=== PATIENT | male | born 1945 | race Caucasian/White ===

== ENCOUNTER 2018-09-20 11:13 | Inpatient (IN) | payer OTHER, MEDICARE ==
[2018-09-20 12:15] LABS: VENOUS PC02 33.9 mmHg (38-52); VENOUS PH 7.5 (7.32-7.42); VENOUS PO2 51.6 mmHg (28-48)
[2018-09-20] MEDS ORDERED: ACETAMINOPHEN INJECTION 100 ML IVPB ONE (12:25)
[2018-09-20] MEDS ORDERED: PIPERACILLIN/TAZOB 4.5 GM 4.5 GM/100 ML BAG IVPB ONE (12:26)
[2018-09-20] MEDS ORDERED: VANCOMYCIN 1 GRAM (PRE-DOCKED) 1,000 MG/250 ML BAG IVPB ONE (12:26)
[2018-09-20 12:36] LABS: BASO % 0.4 % (0-2.0); EOS % 0.2 % (0-4.5); HEMATOCRIT 35.8 % (35.4-49); HEMOGLOBIN 12.2 GM/dL (11.7-16.9); LYMPH % 10.4 % (8-40); MCH 29.4 pg (25.7-33.7); MCHC 34.1 g/dl (32.0-35.9); MEAN CELL VOLUME 86.2 fl (80-96); MEAN PLT VOLUME 8.7 fl (7.5-11.1); MONO % 4.9 % (3.8-10.2); NEUT % 84.1 % (42.8-82.8); PLATELET COUNT 111 K/MM3 (134-434); RBC 4.16 M/mm3 (4.00-5.60); RDW 15.8 % (11.9-15.9)
[2018-09-20] MEDS ORDERED: ACETAMINOPHEN 1000 MG/100 ML VIAL (NON FORMULARY) IVPB ONE (12:39)
[2018-09-20] MEDS ORDERED: VANCOMYCIN 1,000 MG in DEXTROSE 5%-WATER - 250 ML IVPB ONE (12:39)
--- NOTE | 2018-09-20 12:39 | PDOC ---
History of Present Illness - General Chief Complaint: Weakness Stated Complaint: weakness Time Seen by Provider: 09/20/18 11:41 - History of Present Illness Initial Comments: 09/20/18 12:21 The patient is a 72 year old male with a significant past medical history of COPD, diabetes, CHF, and emphysema who presents to the emergency department with weakness and diaphoresis since earlier today. As per the patient's son, the patient was found to be sliding down to the floor of his hotel room from his bed this morning at about 9am secondary to his weakness. No head stirike, injuries, LOC from fall. The patient's son states that his daughter witnessed the patient's condition and notified him. The patient son notes that the patient had been up all night and was found to be urine and bowel incontinent when witnessed this morning. Patient experienced 1 episode of brown colored emesis and was noted to have diaphoresis and bilateral leg swelling by his son prompting him to bring him to [facility]. Denies fevers, chills, cp, sob, weakness, dizziness, numbness. Per the patient's son and MJ Zelaya the patient was [facility] with [facility] and CHF for 3 months (May 21- Aug 22) and he was then placed on antibiotics for 21 days by which he recently finished. The patient was seen recently by his doctor and had an increase in his water pill dosage. As per the patient's son, the patient has not taken any of his medications today. Past History - Past Medical History Allergies/Adverse Reactions: Allergies Allergy/AdvReac Type Severity Reaction Status Date / Time No Known Allergies Allergy Verified 09/20/18 11:29 COPD: Yes CHF: Yes Diabetes: Yes Hypercholesterolemia: Yes Other medical history: hard of hearing. - Suicide/Smoking/Psychosocial Hx Smoking History: Former smoker Have you smoked in the past 12 months: No Information on smoking cessation initiated: No Hx Alcohol Use: No Drug/Substance Use Hx: No Review of Systems - Review of Systems Comments:: 09/20/18 14:40 GENERAL/CONSTITUTIONAL: No fever or chills. +generalized weakness. HEAD, EYES, EARS, NOSE AND THROAT: No change in vision. No ear pain or discharge. No sore throat. GASTROINTESTINAL: No nausea, vomiting, diarrhea or constipation. GENITOURINARY: No dysuria, frequency, or change in urination. CARDIOVASCULAR: No chest pain or shortness of breath. RESPIRATORY: No cough, wheezing, or hemoptysis. MUSCULOSKELETAL: No joint or muscle swelling or pain. No neck or back pain. SKIN: No rash NEUROLOGIC: No headache, vertigo, loss of consciousness, or change in strength/ sensation. ENDOCRINE: No increased thirst. No abnormal weight change. HEMATOLOGIC/LYMPHATIC: No anemia, easy bleeding, or history of blood clots. ALLERGIC/IMMUNOLOGIC: No hives or skin allergy. *Physical Exam - Vital Signs Last Vital Signs Temp Pulse Resp BP Pulse Ox 103.5 F H 81 22 H 120/61 98 09/20/18 11:33 09/20/18 11:17 09/20/18 11:17 09/20/18 11:17 09/20/18 11:17 - Physical Exam Comments: 09/20/18 14:41 GENERAL: Awake, alert, in mild respiratory distress. +diaphoretic HEAD: No signs of trauma EYES: PERRLA, EOMI, sclera anicteric, conjunctiva clear ENT: Nares patent, oropharynx clear without exudates. Moist mucosa LUNGS: b/l crackles, +mild increased WOB, RR 20 HEART:tachycardic but regular to 114, normal S1 and S2, no murmurs, rubs or gallops ABDOMEN: Soft, nontender, normoactive bowel sounds. No guarding, no rebound. No masses EXTREMITIES: b/l symmetric LE pitting edema NEUROLOGICAL: Normal speech, cranial nerves intact, equal strength and sensation b/l SKIN: Warm, Dry, normal turgor, no rashes or lesions noted. Moderate Sedation - Procedure Monitoring Vital Signs: Procedure Monitoring Vital Signs Temperature 103.5 F H 09/20/18 11:33 Pulse Rate 81 09/20/18 11:17 Respiratory Rate 22 H 09/20/18 11:17 Blood Pressure 120/61 09/20/18 11:17 O2 Sat by Pulse Oximetry (%) 98 09/20/18 11:17 Heart Score/ECG Review #1 09/20/18 14:45 Twelve-lead EKG was performed and reviewed by me. Sinus tachycardia, rate 118. Normal axis. wavy baseline but no ST elevations. ED Treatment Course - LABORATORY CBC & Chemistry Diagram: 09/20/18 11:45 09/20/18 11:45 - ADDITIONAL ORDERS Additional order review: Laboratory Results 09/20/18 11:45 VBG pH 7.50 H POC VBG pCO2 33.9 L POC VBG pO2 51.6 H Mixed VBG HCO3 26.1 H - RADIOLOGY Radiology Studies Ordered: Category Date Time Status CHEST X-RAY PORTABLE* [RAD] Stat Radiology 09/20/18 11:50 Ordered Medical Decision Making - Medical Decision Making 09/20/18 14:40 73yo M hx CHF, COPD, recent PNA admission presents to the ED with generalized weakness found to be febrile, tachycardic and tachypneic. Exam with crackles. Story c/f HCAP, pt covered with Vanc/Zosyn. Flu swab neg Spoke with ED attending at the [place] for collateral, pt was admitted for PCP pneumonia presumably 2/2 immunesupression from humira/methrexate tx for arthritis. These medications have since been stopped. Pt was readmitted for resp failure 2/2 rhinovirus. Pt was not intubated but was in ICU. Per his son and POA, pt is DNR/DNI. Pt expressed his wishes not to be resusitated to his son and family. At this time, pt is stable from a resp stand point. CXR with diffuse infiltrates and effusion on right. Family amenable to bipap for resp support if needed. RR at this time is 18, O2 sat is 98% on 2L. Case discussed with Dr. Ramirez, pt has been admitted to Dr. Cotto for further mgmt. Case discussed in detail with admitting physician including history, physical exam and ancillary studies. Admitting physician has assumed care for the patient, will follow all pending diagnostics and will complete the evaluation and treatment. *DC/Admit/Observation/Transfer Diagnosis at time of Disposition: PNA (pneumonia), Weakness, Fever - Discharge Dispostion Condition at time of disposition: Stable Decision to Admit order: Yes - Referrals Referrals: Justin Thao MD [Primary Care Provider] - - Patient Instructions - Post Discharge Activity - Attestations Physician Attestion: 09/20/18 14:53 I, Dr. Tari Quiñones MD, attest that this document has been prepared under my direction and personally reviewed by me in its entirety. I further attest, that it accurately reflects all work, treatment, procedures and medical decision -making performed by me.
[2018-09-20] MEDS ORDERED: PIPERACILLIN/TAZOB 4.5 GM 4.5 GM in DEXTROSE 5%-WATER - 100 ML IVPB ONE (12:42)
[2018-09-20 12:57] LABS: ALBUMIN 3.1 g/dl (3.4-5.0); ALK PHOS 83 U/L (45-117); ANION GAP 13 MMOL/L (8-16); BILIRUBIN,TOTAL 0.7 mg/dL (0.2-1); BLOOD UREA NITROGEN 30 mg/dL (7-18); CALCIUM 7.8 mg/dL (8.5-10.1); CHLORIDE 97 mmol/L (98-107); CO2 25 mmol/L (21-32); CREATININE 1.5 mg/dL (0.55-1.3); GLUCOSE,RANDOM 239 mg/dL (74-106); SGOT/AST 32 U/L (15-37); SGPT/ALT 23 U/L (13-61); SODIUM 135 mmol/L (136-145)
[2018-09-20 14:08] LABS: LDH 449 U/L (87-246); MAGNESIUM 0.9 mg/dL (1.8-2.4)
[2018-09-20] MEDS ORDERED: SULFAMETHOXAZOLE 80 MG/TRIMETHOPRIM 16 MG/ML VIAL IVPB ONE (14:11)
[2018-09-20] MEDS ORDERED: KCL 10 MEQ IVPB 10 MEQ/100 ML INFUS.BAG IVPB ONE (14:18)
[2018-09-20] MEDS ORDERED: MAGNESIUM 1GM/D5W - 2 GM/200 ML IVPB IVPB ONE (14:18)
[2018-09-20] MEDS: KCL 10 MEQ IVPB 10 MEQ/100 ML INFUS.BAG IVPB SCH ×3 (14:38→21:20)
[2018-09-20] MEDS ORDERED: SULFAMETHOXAZOLE/TRIMETHOPRIM 400 MG in DEXTROSE 5%-WATER - 500 ML IVPB ONE (15:00)
--- NOTE | 2018-09-20 15:08 | HP ---
Admitting History and Physical - Primary Care Physician PCP: Justin Thao DO - Admission Chief Complaint: Altered mental status History of Present Illness: 73 yo M h/o COPD, IDDM, CHF, and emphysema brought in by family member to the ED due to altered mental status. Patient vomited once last night and found to be sliding off his bed to the floor this morning. Per his son, patient was a little "out" and weak which is off his normal behavioral and baseline mental status. Patient was hospitalized at [facility] in May, 2018 for upper respiratory infection/PNA from rhinovirus then readmitted in July for penumocystis pneumonia, based on the fact that patient was on methotrexate and humira which made him immunosuppressed, treated with bactrim for 21 days, without broncoscopy because family declined the procedure. Denies cough, hemoptysis, headache, dizziness, wheezing, abd pain, diarrhea, urinary symptom. Patient was frebile to 103.5F, tachycardic and tachypenic in the ED. He receved bactrim x 1, vanc and zosyn x 1. Lytes were repleted. History Source: Patient, Family Member Limitations to Obtaining History: No Limitations - Past Medical History Cardiovascular: Yes: CHF Pulmonary: Yes: COPD, Pneumonia, Other (emphysema) Endocrine: Yes: Diabetes Mellitus - Smoking History Smoking history: Former smoker Have you smoked in the past 12 months: No - Alcohol/Substance Use Hx Alcohol Use: No - Social History Usual Living Arrangement: Yes: With Child Home Medications - Allergies Allergies/Adverse Reactions: Allergies Allergy/AdvReac Type Severity Reaction Status Date / Time No Known Allergies Allergy Verified 09/20/18 11:29 - Home Medications Home Medications: Ambulatory Orders Folic Acid 1 mg PO DAILY 09/20/18 Furosemide [Lasix] 80 mg PO DAILY 09/20/18 Insulin Glargine,Hum.rec.anlog [Basaglar Kwikpen U-100] 15 unit SQ DAILY Lovastatin 20 mg PO HS 09/20/18 Terazosin HCl 10 mg PO HS 09/20/18 metFORMIN HCL [Metformin HCl] 850 mg PO DAILY 09/20/18 Review of Systems - Review of Systems Constitutional: reports: Chills, Diaphoresis, Fever, Malaise Cardiovascular: reports: Shortness of Breath. denies: Chest Pain Respiratory: denies: Cough, Hemoptysis Gastrointestinal: reports: Vomiting. denies: Abdominal Pain, Bloating, Diarrhea , Vomiting Blood Genitourinary: reports: No Symptoms Neurological: reports: No Symptoms Physical Examination Vital Signs: Vital Signs Temperature 101 F H 09/20/18 14:57 Pulse Rate 110 H 09/20/18 12:40 Respiratory Rate 25 H 09/20/18 11:50 Blood Pressure 112/86 09/20/18 11:50 O2 Sat by Pulse Oximetry (%) 96 09/20/18 12:40 Constitutional: Yes: Calm, Mild Distress, Obese Cardiovascular: Yes: Tachycardia, S1, S2. No: Murmur Respiratory: Yes: On Nasal O2, Other (b/l basilar crackles) Gastrointestinal: Yes: Normal Bowel Sounds, Soft, Abdomen, Obese. No: Distention, Tenderness Edema: Yes Edema: LLE: 1+, RLE: 1+ Neurological: Yes: Alert, Oriented Labs: CBC, BMP 09/20/18 11:45 09/20/18 11:45 Imaging - Results X-ray: Report Reviewed, Image Reviewed Assessment/Plan 73 yo M h/o COPD, IDDM, CHF, and emphysema admitted to the floor for severe sepsis. Severe sepsis - 2/2 PNA, likely aspiration, cannot r/o HCAP, PCP or viral origin - pending urine and blood cultures - cont. vanc and zosyn - add atovaquone 750mg bid - add azitromax 500mg IV, give it after EKG, check Qtc first - trend lactate and wbc Elevated Cr - unknown baseline - renal U/S - urine lytes COPD - cont. duoneb CHF - not in exacerbation - cont. daily lasix po 80mg - obtain ECHO IDDM - BGM and sliding scale FEN - caution with fluids due to chf - monitor K+ and Mg2+ , repeat BMP + Mg2+ at 8pm - diabetic diet DVT ppx w/ heparin sq Dispo: medical record release form signed and fax to LETTY Addison to obtain prior admission record. Pharmacy called and to fax med list to 5th floor. Jimmy Ramirez PGY3 Visit type - Emergency Visit Emergency Visit: Yes ED Registration Date: 09/20/18 Care time: The patient presented to the Emergency Department on the above date and was hospitalized for further evaluation of their emergent condition. - New Patient This patient is new to me today: Yes Date on this admission: 09/20/18 - Critical Care Critical Care patient: No
[2018-09-20 15:11] LABS: INR 1.23 (0.83-1.09); PROTHROMBIN TIME (PATIENT) 14.6 SEC (9.7-13.0)
[2018-09-20 15:13] LABS: ACTIVATED PTT 30.7 SECONDS (25.2-36.5)
--- NOTE | 2018-09-20 16:03 | PN ---
Teaching Attending Note Name of Resident: Jimmy Ramirez ATTENDING PHYSICIAN STATEMENT I saw and evaluated the patient. I reviewed the resident's note and discussed the case with the resident. I agree with the resident's findings and plan as documented. SUBJECTIVE: Patient presented with shortness of breath, was recently discharged from the [facility] . OBJECTIVE: Vital Signs Temperature 101 F H 09/20/18 14:57 Pulse Rate 110 H 09/20/18 12:40 Respiratory Rate 25 H 09/20/18 11:50 Blood Pressure 112/86 09/20/18 11:50 O2 Sat by Pulse Oximetry (%) 96 09/20/18 12:40 Initial Vital Signs Temp Pulse Resp BP Pulse Ox 98.3 F 81 22 H 120/61 98 09/20/18 11:17 09/20/18 11:17 09/20/18 11:17 09/20/18 11:17 09/20/18 11:17 GENERAL: Awake, alert, in mild respiratory distress. HEAD: No signs of trauma EYES: PERRLA, EOMI, sclera anicteric, conjunctiva clear ENT: oropharynx clear without exudates. Moist mucosa LUNGS: b/l crackles, decreased BS BL ,RR 20 HEART:tachycardic but regular to 114, normal S1 and S2, no murmurs, rubs or gallops ABDOMEN: Soft, nontender, normoactive bowel sounds. No guarding, no rebound. No masses EXTREMITIES: b/l symmetric LE pitting edema NEUROLOGICAL: Normal speech, cranial nerves intact, equal strength and sensation b/l SKIN: Warm, Dry, normal turgor, no rashes or lesions noted. CBCD WBC 11.0 K/mm3 (4.0-10.0) H 09/20/18 11:45 RBC 4.16 M/mm3 (4.00-5.60) 09/20/18 11:45 Hgb 12.2 GM/dL (11.7-16.9) 09/20/18 11:45 Hct 35.8 % (35.4-49) 09/20/18 11:45 MCV 86.2 fl (80-96) 09/20/18 11:45 MCHC 34.1 g/dl (32.0-35.9) 09/20/18 11:45 RDW 15.8 % (11.9-15.9) 09/20/18 11:45 Plt Count 111 K/MM3 (134-434) L 09/20/18 11:45 MPV 8.7 fl (7.5-11.1) 09/20/18 11:45 CMP Sodium 135 mmol/L (136-145) L 09/20/18 11:45 Potassium 3.0 mmol/L (3.5-5.1) L 09/20/18 11:45 Chloride 97 mmol/L (98-107) L 09/20/18 11:45 Carbon Dioxide 25 mmol/L (21-32) 09/20/18 11:45 Anion Gap 13 MMOL/L (8-16) 09/20/18 11:45 BUN 30 mg/dL (7-18) H 09/20/18 11:45 Creatinine 1.5 mg/dL (0.55-1.3) H 09/20/18 11:45 Creat Clearance w eGFR 46.13 (>60) 09/20/18 11:45 Random Glucose 239 mg/dL (74-106) H 09/20/18 11:45 Calcium 7.8 mg/dL (8.5-10.1) L 09/20/18 11:45 Total Bilirubin 0.7 mg/dL (0.2-1) 09/20/18 11:45 AST 32 U/L (15-37) 09/20/18 11:45 ALT 23 U/L (13-61) 09/20/18 11:45 Alkaline Phosphatase 83 U/L (45-117) 09/20/18 11:45 Total Protein 6.0 g/dl (6.4-8.2) L 09/20/18 11:45 Albumin 3.1 g/dl (3.4-5.0) L 09/20/18 11:45 CARDIAC ENZYMES Troponin I < 0.02 ng/ml (0.00-0.05) 09/20/18 11:45 Current Medications Generic Name Dose Route Start Last Admin Trade Name Freq PRN Reason Stop Dose Admin Albuterol/Ipratropium 1 amp 09/20/18 20:00 Duoneb - NEB RTID JENNIFER Atorvastatin Calcium 10 mg 09/20/18 22:00 Lipitor - PO HS JENNIFER Atovaquone 750 mg 09/20/18 17:30 Mepron - PO BIDWM JENNIFER Folic Acid 1 mg 09/21/18 10:00 Folic Acid - PO DAILY JENNIFER Furosemide 80 mg 09/21/18 10:00 Lasix - PO DAILY JENNIFER Heparin Sodium (Porcine) 5,000 unit 09/20/18 18:00 Heparin - SQ Q8H-IV JENNIFER Piperacillin Sod/Tazobactam 100 mls @ 200 mls/hr 09/20/18 18:00 Sod 4.5 gm/ Dextrose IVPB Q8H-IV JENNIFER Protocol Insulin Aspart 1 vial 09/20/18 16:30 Novolog Vial Sliding Scale - SQ ACHS JENNIFER Protocol Terazosin HCl 10 mg 09/20/18 22:00 Hytrin - PO HS JENNIFRE ASSESSMENT AND PLAN: Patient is a 73 yo M h/o COPD, IDDM, CHF, and emphysema admitted to the floor for severe sepsis and shortness of breath. #Severe sepsis due to Pneumonia (HCAP) since patient was discharged 21 days ago from [facility] , will treat the patient with Zithromax x 1 dose, for possible legionella, will check legeniella antigen and strpt antigen, continue vancomycin and zosyn , add atovaquone 750mg bid ( for possible PCP) doubt PCP given acuity of the symptoms. #Possible recurrent UTI, patient was treated with Cipro x 14 days just finished the course. #Elevated creatinine- check renal sonogram, urine lytes #Hx of COPd continue with duoneb # Hx of COPd will give hime his home dose lasix, echo for am DNR/DNI DVT ppx w/ heparin sq Dispo: medical record release form signed and fax to LETTY Addison to obtain prior admission record. Pharmacy called and to fax med list to 5th floor.
[2018-09-20] MEDS ORDERED: KCL 10 MEQ IVPB 20 MEQ/200 ML INFUS.BAG IVPB ONE (16:07)
--- NOTE | 2018-09-20 16:11 | PN ---
Progress Note (short form) - Note Progress Note: ID consult dictated seen in ED imp/reccd 73 yo man brought to ED this am by family. THey had been staying at the hotel for the weekend. He was fine yesterday. had one episode of vomiting last night that he attributes to food this am his granddaughter found him weak and sliding to the floor off the bed patient is awake and alert denies sob, or chest or abdominal pain no dysuria per son at bedside dad had 2 admissions - one in the fall and agin one after Thankgiving at [facility] for pneumonia he was diagnosed with PCP- but never had a bronch per family- treated 21 days with antibiotics- RA meds d/rylie recently saw a new doctor 3 weeks ago was diagnosed with a UTI and just finished a 14 day course of cipro bid now with fever/abnl cxray r/p aspiration pneumonia HCAP doubt PCP given acuity of process ?recurrent UTI obtain UA and urine culture blood cultures have been sent he was given vanco/zosyn/bactrim in ed would continue vanco/zosyn check legionella urinary antigen one dose zithromax pending legionella fungitell (ldh is high) po mepron 750 bid get records from [facility] ct elevated creatinine- check renal sonogram DNR/DNI d/w admitting resident dr chavez d/w hospitalist
[2018-09-20] MEDS ORDERED: FUROSEMIDE 40 MG TABLET (FP) PO ONE (16:15)
[2018-09-20] MEDS ORDERED: FUROSEMIDE 40 MG TABLET (FP) ONE (16:25)
[2018-09-20] MEDS ORDERED: AZITHROMYCIN IVPB 500 MG/250 ML BAG IVPB ONE (16:39)
[2018-09-20 17:25] LABS: URINE APPEARANCE SLCLOUDY; URINE BILIRUBIN NEGATIVE (<2.0 mg/dL); URINE COLOR YELLOW; URINE GLUCOSE (UA) 2+ (NEGATIVE); URINE KETONE NEGATIVE (NEGATIVE); URINE LEUK ESTERASE NEGATIVE (NEGATIVE); URINE NITRITE NEGATIVE (NEGATIVE); URINE PROTEIN NEGATIVE (NEGATIVE); URINE UROBILINOGEN NEGATIVE mg/dL (0.2-1.0)
--- NOTE | 2018-09-20 17:25 | CONS ---
DATE OF CONSULTATION: 09/20/2018 This is the first [place] admission for this 73-year-old man. Much of the history is from the patient's son, from the emergency room doctor's assessment, who also called his prior hospital. He is an 83-year-old man who has had 2 recent prolonged admissions to [facility] in the fall of 2017. He originally went home around [facility], after an episode of pneumonia. He was re-admitted after that and came home again in August, after a 2nd episode of pneumonia. Per the emergency room doctor, who spoke to the ER attending at [facility]. He had a diagnosis of Pneumocystis pneumonia there secondary to immunosuppression from Humira and methotrexate treatment for arthritis, and his medications were stopped. He has not been on any rheumatoid arthritis medications since then. He apparently had a 2nd admission for Rhinovirus. The patient, after the 2nd discharge home in August, has been living with his son and family. He recently saw a new provider 3 weeks back, who got labs and called him and told him he had a urinary tract infection. He prescribed Cipro b.i.d. for 10 to 14 days, which the patient has completed. The patient this weekend came with his son and family, just for a holiday weekend, at the nearby hotel to the hospital. He was fine on Friday. Friday night he had an episode of vomiting, which the patient attributes to the food and to not liking the food. The patient was sharing a room with his granddaughter; in the morning, she went to alert her dad that he was very lethargic and he had slipped from the bed and was resting on the floor. They brought him to the emergency room, where he was noted to be febrile, he had a fever of 103.5, he had an episode of incontinence of urine and bowel in the ER. He is currently awake and alert, on nasal cannula. His past medical history is notable for COPD, diabetes, heart failure, and emphysema. He has a history of arthritis, for which in the past he was immunosuppressive agents. He has a history of hypercholesterolemia, diabetes, heart failure, COPD. His medication list is currently not available. He has no known drug allergies. In the emergency room, he was given vancomycin, Zosyn, and Bactrim. SOCIAL HISTORY: He resides with his son. He is a former smoker, has not smoked in years. REVIEW OF SYSTEMS: He denies chest pain, abdominal pain. His vomiting has stopped. PHYSICAL EXAMINATION: Vital Signs: His current temperature is 101. T-max is 103.5. Pulse is 120. Blood pressure 112/86. He is saturating 96% on 2 L. HEENT: He is normocephalic. His eyes are anicteric. He has dry oral mucosa. Neck: Supple. No meningeal signs. Lungs: His lungs have diminished breath sounds at the bases. Heart: Regular rate and rhythm, tachycardic. Abdomen: Soft. He has no distention. He has good bowel sounds throughout. Extremities: Without edema. Skin: He has no rash. White count is 11,000, hemoglobin is 12.2, platelets 111, INR is 1.2, BUN 30, creatinine 1.5, lactic acid was 3.6 and repeat is 2.4. LFTs are normal. RSV antigen is negative, as well as influenza. Peripheral blood cultures have been sent. He had a chest x-ray that shows a widened mediastinum and infiltrative changes at the right base. In summary, this is a 73-year-old man with fever, abnormal chest x-ray, as well as a recent UTI. Rule out aspiration pneumonia. Also possible healthcare-associated pneumonia. Doubt Pneumocystis carinii pneumonia, given the acuity of this process, but his LDH is elevated at over 400. Would suggest we obtain a UA and urine culture. Would continue vancomycin and Zosyn. Would check a Legionella urinary antigen as well as a pneumococcal urinary antigen. Would give him Zithromax pending the Legionella results. Would obtain a Fungitell, as his LDH is high. Would give him oral Mepron at this time. He is not hypoxic. Would obtain records from [facility] and obtain a chest CT. This was discussed at length with the admitting resident, , as well as the attending hospitalist. His creatinine is 1.5, baseline is not known. Could obtain a renal ultrasound. Check renal ultrasound and dose medications accordingly. Further recommendations to follow. TOM CAPPS M.D. FADI/[id number]
[2018-09-20 18:23] LABS: RATIO URIN PROTEIN/URIN CREAT 0.52 MG/DL
[2018-09-20] MEDS ORDERED: PIPERACILLIN/TAZOBACTAM 4.5 GM VIAL IVPB ONE (19:55)
[2018-09-20] MEDS ORDERED: DEXTROSE 5%-WATER 100 ML IVPB ONE (19:55)
[2018-09-20] MEDS: ATOVAQUONE 750 MG/5 ML (UNIT-DOSE PACKAGING) PO SCH (20:24)
[2018-09-20] MEDS: HEPARIN NA (PORCINE) 5,000 UNITS/ML 1ML VIAL SQ SCH (20:24)
[2018-09-20] MEDS: PIPERACILLIN/TAZOB 4.5 GM 4.5 GM in DEXTROSE 5%-WATER 100 ML IVPB SCH (20:24)
[2018-09-20] MEDS: ALBUTEROL SO4 2.5/IPRATROPIUM 0.5 INH SOL 3 ML VIAL.NEB. NEB SCH (20:50)
[2018-09-20 21:09] LABS: ANION GAP 10 MMOL/L (8-16); BLOOD UREA NITROGEN 27 mg/dL (7-18); CALCIUM 7.2 mg/dL (8.5-10.1); CHLORIDE 100 mmol/L (98-107); CO2 29 mmol/L (21-32); CREATININE 1.4 mg/dL (0.55-1.3); GLUCOSE,RANDOM 221 mg/dL (74-106); MAGNESIUM 1.4 mg/dL (1.8-2.4); SODIUM 139 mmol/L (136-145)
[2018-09-20 21:19] LABS: POTASSIUM 2.5 mmol/L (3.5-5.1)
[2018-09-20] MEDS: ATORVASTATIN CA 10 MG TABLET (FP) PO SCH (21:20)
[2018-09-20] MEDS: TERAZOSIN HCL 5 MG CAPSULE PO SCH (21:26)
[2018-09-20] MEDS: INSULIN SLIDING SCALE (NOVOLOG) 1 VIAL SQ SCH (21:28)
[2018-09-20] MEDS: POTASSIUM CHLORIDE TABS 20 MEQ TABLET.ER (FP) PO SCH (21:41)
[2018-09-21] MEDS ORDERED: DEXTROSE 5%-WATER 100 ML IVPB ONE ×3 (01:05→17:07)
[2018-09-21] MEDS ORDERED: PIPERACILLIN/TAZOBACTAM 4.5 GM VIAL IVPB ONE ×3 (01:05→17:07)
[2018-09-21] MEDS: INSULIN SLIDING SCALE (NOVOLOG) 1 VIAL SQ SCH ×5 (01:20→22:13)
[2018-09-21] MEDS: PIPERACILLIN/TAZOB 4.5 GM 4.5 GM in DEXTROSE 5%-WATER 100 ML IVPB SCH ×3 (01:29→17:33)
[2018-09-21] MEDS: HEPARIN NA (PORCINE) 5,000 UNITS/ML 1ML VIAL SQ SCH ×3 (01:30→17:33)
[2018-09-21 02:06] VITALS: BMI 30.2
[2018-09-21] MEDS: ALBUTEROL SO4 2.5/IPRATROPIUM 0.5 INH SOL 3 ML VIAL.NEB. NEB SCH ×3 (07:15→20:36)
[2018-09-21 08:07] LABS: BASO % 0.4 % (0-2.0); EOS % 0.9 % (0-4.5); HEMATOCRIT 31.5 % (35.4-49); HEMOGLOBIN 10.8 GM/dL (11.7-16.9); LYMPH % 15.1 % (8-40); MCH 29.2 pg (25.7-33.7); MCHC 34.4 g/dl (32.0-35.9); MEAN CELL VOLUME 84.9 fl (80-96); MEAN PLT VOLUME 8.4 fl (7.5-11.1); MONO % 5.5 % (3.8-10.2); NEUT % 78.1 % (42.8-82.8); PLATELET COUNT 110 K/MM3 (134-434); RBC 3.71 M/mm3 (4.00-5.60)
[2018-09-21 08:54] LABS: ALBUMIN 2.8 g/dl (3.4-5.0); ALK PHOS 72 U/L (45-117); ANION GAP 10 MMOL/L (8-16); BILIRUBIN,TOTAL 0.8 mg/dL (0.2-1); BLOOD UREA NITROGEN 22 mg/dL (7-18); CALCIUM 7.3 mg/dL (8.5-10.1); CHLORIDE 100 mmol/L (98-107); CO2 29 mmol/L (21-32); CREATININE 1.4 mg/dL (0.55-1.3); GLUCOSE,RANDOM 123 mg/dL (74-106); SGOT/AST 25 U/L (15-37); SGPT/ALT 23 U/L (13-61); SODIUM 139 mmol/L (136-145); TOT PROT 5.6 g/dl (6.4-8.2)
[2018-09-21 09:07] LABS: POTASSIUM 2.7 mmol/L (3.5-5.1)
[2018-09-21] MEDS ORDERED: PT OWN MED DRAWER 7, Y5N ONE ×2 (09:44→17:07)
[2018-09-21] MEDS: POTASSIUM CHLORIDE TABS 20 MEQ TABLET.ER (FP) PO SCH ×2 (09:49→22:13)
[2018-09-21] MEDS: FUROSEMIDE 40 MG TABLET (FP) PO SCH (09:49)
[2018-09-21] MEDS: ATOVAQUONE 750 MG/5 ML (UNIT-DOSE PACKAGING) PO SCH ×2 (09:49→17:33)
[2018-09-21] MEDS: FOLIC ACID 1 MG TABLET (FP) PO SCH (09:49)
--- NOTE | 2018-09-21 10:31 | PN ---
Progress Note (short form) - Note Progress Note: Patient is comfortable today. feels better. Vital Signs Temperature 98.9 F 09/21/18 06:00 Pulse Rate 81 09/21/18 06:00 Respiratory Rate 20 09/21/18 06:00 Blood Pressure 110/64 09/21/18 06:00 O2 Sat by Pulse Oximetry (%) 97 09/20/18 20:45 GENERAL: Awake, alert, in mild respiratory distress. HEAD: No signs of trauma EYES: PERRLA, EOMI, sclera anicteric, conjunctiva clear ENT: oropharynx clear without exudates. Moist mucosa LUNGS: b/l crackles, decreased BS BL ,RR 20 HEART:rrr of 81 , normal S1 and S2, no murmurs, rubs or gallops ABDOMEN: Soft, nontender, normoactive bowel sounds. No guarding, no rebound. No masses EXTREMITIES: b/l symmetric LE pitting edema NEUROLOGICAL: Normal speech, cranial nerves intact, equal strength and sensation b/l SKIN: Warm, Dry, normal turgor, no rashes or lesions noted. CBCD WBC 8.0 K/mm3 (4.0-10.0) 09/21/18 06:45 RBC 3.71 M/mm3 (4.00-5.60) L 09/21/18 06:45 Hgb 10.8 GM/dL (11.7-16.9) L 09/21/18 06:45 Hct 31.5 % (35.4-49) L 09/21/18 06:45 MCV 84.9 fl (80-96) 09/21/18 06:45 MCHC 34.4 g/dl (32.0-35.9) 09/21/18 06:45 RDW 16.0 % (11.9-15.9) H 09/21/18 06:45 Plt Count 110 K/MM3 (134-434) L 09/21/18 06:45 MPV 8.4 fl (7.5-11.1) 09/21/18 06:45 CMP Sodium 139 mmol/L (136-145) 09/21/18 06:45 Potassium 2.7 mmol/L (3.5-5.1) L* 09/21/18 06:45 Chloride 100 mmol/L (98-107) 09/21/18 06:45 Carbon Dioxide 29 mmol/L (21-32) 09/21/18 06:45 Anion Gap 10 MMOL/L (8-16) 09/21/18 06:45 BUN 22 mg/dL (7-18) H 09/21/18 06:45 Creatinine 1.4 mg/dL (0.55-1.3) H 09/21/18 06:45 Creat Clearance w eGFR 49.96 (>60) 09/21/18 06:45 Random Glucose 123 mg/dL (74-106) H 09/21/18 06:45 Calcium 7.3 mg/dL (8.5-10.1) L 09/21/18 06:45 Total Bilirubin 0.8 mg/dL (0.2-1) 09/21/18 06:45 AST 25 U/L (15-37) 09/21/18 06:45 ALT 23 U/L (13-61) 09/21/18 06:45 Alkaline Phosphatase 72 U/L (45-117) 09/21/18 06:45 Total Protein 5.6 g/dl (6.4-8.2) L 09/21/18 06:45 Albumin 2.8 g/dl (3.4-5.0) L 09/21/18 06:45 CARDIAC ENZYMES Troponin I < 0.02 ng/ml (0.00-0.05) 09/20/18 11:45 Current Medications Generic Name Dose Route Start Last Admin Trade Name Freq PRN Reason Stop Dose Admin Albuterol/Ipratropium 1 amp 09/20/18 20:00 09/21/18 07:15 Duoneb - NEB 1 amp RTID JENNIFER Administration Atorvastatin Calcium 10 mg 09/20/18 22:00 09/20/18 21:20 Lipitor - PO 10 mg HS JENNIFER Administration Atovaquone 750 mg 09/20/18 17:30 09/21/18 09:49 Mepron - PO 750 mg BIDWM JENNIFER Administration Folic Acid 1 mg 09/21/18 10:00 09/21/18 09:49 Folic Acid - PO 1 mg DAILY JENNIFER Administration Furosemide 80 mg 09/21/18 10:00 09/21/18 09:49 Lasix - PO 80 mg DAILY JENNIFER Administration Heparin Sodium (Porcine) 5,000 unit 09/20/18 18:00 09/21/18 09:50 Heparin - SQ 5,000 unit Q8H-IV JENNIFER Administration Piperacillin Sod/Tazobactam 100 mls @ 200 mls/hr 09/20/18 18:00 09/21/18 09: 51 Sod 4.5 gm/ Dextrose IVPB 200 mls/hr Q8H-IV JENNIFER Administration Protocol Potassium Chloride 10 meq in 100 mls @ 100 mls/hr 09/21/18 10:30 Potassium Chloride 10 Meq Premix Ivpb - IVPB 09/21/18 13:29 Q60M JENNIFER Insulin Aspart 1 vial 09/20/18 16:30 09/21/18 06:35 Novolog Vial Sliding Scale - SQ Not Given ACHS JENNIFER Protocol Magnesium Sulfate 2 gm 09/21/18 11:00 Magnesium Sulfate IVPB 09/21/18 11:01 ONCE ONE Potassium Chloride 40 meq 09/20/18 22:00 09/21/18 09:49 K-Dur - PO 09/22/18 10:01 40 meq BID JENNIFER Administration Terazosin HCl 10 mg 09/20/18 22:00 09/20/18 21:26 Hytrin - PO 10 mg HS JENNIFER Administration Home Medications Medication Instructions Recorded Folic Acid 1 mg PO DAILY 09/20/18 Furosemide [Lasix] 80 mg PO DAILY 09/20/18 Insulin Glargine,Hum.rec.anlog 15 unit SQ DAILY 09/20/18 [Basaglar Kwikpen U-100] Lovastatin 20 mg PO HS 09/20/18 Terazosin HCl 10 mg PO HS 09/20/18 metFORMIN HCL [Metformin HCl] 850 mg PO DAILY 09/20/18 Microbiology Microbiology 09/20/18 11:50 Blood - Peripheral Venous Blood Culture - Preliminary NO GROWTH OBTAINED AFTER 24 HOURS, INCUBATION TO CONTINUE FOR 4 DAYS. 09/20/18 11:50 Blood - Peripheral Venous Blood Culture - Preliminary NO GROWTH OBTAINED AFTER 24 HOURS, INCUBATION TO CONTINUE FOR 4 DAYS. 09/20/18 17:08 Urine For Antigen Detection Legionella Antigen - Final 09/20/18 17:08 Urine For Antigen Detection Streptococcus pneumoniae Antigen (M - Final 09/20/18 17:08 Urine For Antigen Detection Legionella Antigen - Final 09/20/18 17:08 Urine For Antigen Detection Streptococcus pneumoniae Antigen (M - Final Patient is a 73 yo M h/o COPD, IDDM, CHF, and emphysema admitted to the floor for severe sepsis. #Severe sepsis due to Pneumonia(HCAP) continue current antibiotics, patient was recently discharged 21 days ago from [facility] , s/p one dose zithromax. for possible legionella, legionella antigrn and strpt antigen negative. continue vancomycin and zosyn , add atovaquone 750mg bid ( for possible PCP) doubt PCP given acuity of the symptoms. #Possible recurrent UTI, patient was treated with Cipro x 14 days just finished the course. #Elevated creatinine- check renal sonogram, urine lytes #Hx of COPd continue with duoneb # Hx of COPd will give hime his home dose lasix, echo for am DNR/DNI DVT ppx w/ heparin sq papers from [facility] is in the chart. Visit type - Emergency Visit Emergency Visit: Yes ED Registration Date: 09/20/18 Care time: The patient presented to the Emergency Department on the above date and was hospitalized for further evaluation of their emergent condition. - New Patient This patient is new to me today: No - Critical Care Critical Care patient: No - Discharge Referral Referred to [facility] Med P.C[facility] No
--- NOTE | 2018-09-21 10:35 | EKG ---
Test Reason : Blood Pressure : / mmHG Vent. Rate : 118 BPM Atrial Rate : 118 BPM P-R Int : 152 ms QRS Dur : 076 ms QT Int : 300 ms P-R-T Axes : 009 027 022 degrees QTc Int : 420 ms SINUS TACHYCARDIA SEPTAL INFARCT , AGE UNDETERMINED ABNORMAL ECG NO PREVIOUS ECGS AVAILABLE Confirmed by HARVEY STOLL MD ([id number]) on 09/21/2018 10:35:02 AM Referred By: Confirmed By:HARVEY STOLL MD
[2018-09-21] MEDS ORDERED: MAGNESIUM SULF 50% (8.12 MEQ/2 ML-1 GM VIAL) IVPB ONE (11:00)
[2018-09-21] MEDS: KCL 10 MEQ IVPB 10 MEQ/100 ML INFUS.BAG IVPB SCH ×3 (11:11→14:37)
--- NOTE | 2018-09-21 14:19 | CON.PULM ---
Consult Consult Specialty:: PULMONARY Referred by:: JUSTA Reason for Consultation:: FEVER/ABN CT CHEST - History of Present Illness Chief Complaint: WEAKNESS History of Present Illness: 73 yo M h/o COPD, IDDM, CHF, RA,and COPD brought in by family member to the ED due to altered mental status. Patient vomited once last night and found to be sliding off his bed to the floor this morning. Patient was hospitalized at 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 treated with bactrim for 21 days , without bronchoscopy because family declined the procedure. Denies cough, hemoptysis, headache, dizziness, wheezing, abd pain, diarrhea, urinary symptom. Patient was frebile to 103.5F, tachycardic and tachypenic in the ED. He receved bactrim x 1, vanc and zosyn x 1.Found to be hypokalemic. 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 Cardio/Vascular: Yes: CHF Pulmonary: Yes: COPD, Pneumonia, Other Gastrointestinal: No: Ascites Hepatobiliary: No: Cirrhosis Renal/: Yes: Renal Inusuff Heme/Onc: Yes: Anemia Infectious Disease: Yes: Other (h/o pcp) Psych: No: Addictions Rheumatology: Yes: Rheumatoid Arthritis Endocrine: Yes: Diabetes Mellitus - Alcohol/Substance Use Hx Alcohol Use: No History of Substance Use: reports: None - Smoking History Smoking history: Former smoker Have you smoked in the past 12 months: No - Social History Place of : [facility] History of Recent Travel: No Home Medications - Allergies Allergies/Adverse Reactions: Allergies Allergy/AdvReac Type Severity Reaction Status Date / Time No Known Allergies Allergy Verified 09/20/18 11:29 - Home Medications Home Medications: Ambulatory Orders Folic Acid 1 mg PO DAILY 09/20/18 Furosemide [Lasix] 80 mg PO DAILY 09/20/18 Insulin Glargine,Hum.rec.anlog [Basaglar Kwikpen U-100] 15 unit SQ DAILY Lovastatin 20 mg PO HS 09/20/18 Terazosin HCl 10 mg PO HS 09/20/18 metFORMIN HCL [Metformin HCl] 850 mg PO DAILY 09/20/18 Family Disease History - Family Disease History Family History: Unremarkable Review of Systems - Review of Systems Constitutional: reports: Fever, Lethargy, Loss of Appetite Eyes: denies: Blurred Vision HENT: denies: Difficult Swallowing Neck: denies: Decreased ROM Cardiovascular: denies: Chest Pain Respiratory: denies: Cough, Exercise Intolerance, Hemoptysis, SOB on Exertion, Wheezing Gastrointestinal: denies: Abdominal Pain Genitourinary: denies: Burning Breasts: reports: No Symptoms Reported Musculoskeletal: reports: Other (h/o RA now in remission) Physical Exam Vital Sings: Vital Signs Temperature 98.4 F 09/21/18 09:00 Pulse Rate 96 H 09/21/18 09:00 Respiratory Rate 20 09/21/18 09:00 Blood Pressure 121/61 09/21/18 09:00 O2 Sat by Pulse Oximetry (%) 97 09/20/18 20:45 Constitutional: Yes: Calm Eyes: Yes: EOM Intact HENT: Yes: Normocephalic Neck: Yes: Trachea Midline Cardiovascular: Yes: Regular Rate and Rhythm Respiratory: Yes: Rhonchi (scattered bilaterally) Gastrointestinal: Yes: Normal Bowel Sounds Edema: No Neurological: Yes: Alert Psychiatric: Yes: Alert Labs: CBC, BMP 09/21/18 06:45 09/21/18 06:45 rest reviewed Imaging - Results Chest X-ray: Report Reviewed, Image Reviewed Cat Scan: Report Reviewed, Image Reviewed Problem List - Problems (1) Rheumatoid arthritis Code(s): M06.9 - RHEUMATOID ARTHRITIS, UNSPECIFIED (2) Fever Code(s): R50.9 - FEVER, UNSPECIFIED (3) PNA (pneumonia) Code(s): J18.9 - PNEUMONIA, UNSPECIFIED ORGANISM (4) Weakness Code(s): R53.1 - WEAKNESS (5) COPD (chronic obstructive pulmonary disease) Code(s): J44.9 - CHRONIC OBSTRUCTIVE PULMONARY DISEASE, UNSPECIFIED (6) ILD (interstitial lung disease) Code(s): J84.9 - INTERSTITIAL PULMONARY DISEASE, UNSPECIFIED Assessment/Plan FEBRILE EPISODE AT HOME WITH WEAKNESS EXTENSIVE HX WITH RA AND PREVIOUS IMMUNOSUPPRESSANTS ALONG WITH RECENT PROLONGED HOSPITALIZATION AND COMPLETION OF ANTIBIOTICS RECENT PAST INFECTION WITH PCP FIRST HOSPITALIZATION HERE(NO OLD RECORDS OR PREVIOUS RADIOGRAPHS) CT CHEST APPEARS TO HAVE BIBASILAR HONEYCOMBING/RUL IRREGULAR DENSITY AND BILATERAL EXTENSIVE CHRONIC APPEARING INFILTRATIVE CHANGES WOULD CHECK CULTURES/SUPPLEMENTAL O2/BRONCHODILATORS/REPLETE K+ ANTIBIOTICS PER ID/PRIMARY TEAM OBTAIN OLD RECORDS NOT TO UNNECESSARILY REPEAT TESTING SUGGEST RHEUM EVAL WILL FOLLOW Matt PLASENCIA MD
--- NOTE | 2018-09-21 16:10 | PN ---
Progress Note (short form) - Note Progress Note: alert no complaints no vomitig no diarrhea Vital Signs Period Temp Pulse Resp BP Sys/Wagoner Pulse Ox Last 24 Hr 97.6 F-99.9 F 70-96 13-20 107-121/61-78 97-100 cor-rrr llungs decreased bs at bases abd soft,nt ext trace edema CBC, BMP 09/21/18 06:45 09/21/18 06:45 Microbiology 09/20/18 11:50 Blood - Peripheral Venous Blood Culture - Preliminary NO GROWTH OBTAINED AFTER 24 HOURS, INCUBATION TO CONTINUE FOR 4 DAYS. 09/20/18 11:50 Blood - Peripheral Venous Blood Culture - Preliminary NO GROWTH OBTAINED AFTER 24 HOURS, INCUBATION TO CONTINUE FOR 4 DAYS. 09/20/18 17:08 Urine For Antigen Detection Legionella Antigen - Final negative 09/20/18 17:08 Urine For Antigen Detection Streptococcus pneumoniae Antigen (M - Final negative ct scan copd with ILD, bilateral opacities c/w neumonia, ?nodular infiltrate versus rul mass Current Medications Albuterol/Ipratropium (Duoneb -) 1 amp NEB RTID JENNIFER Last Admin: 09/21/18 14:11 Dose: 1 amp Atorvastatin Calcium (Lipitor -) 10 mg PO HS JENNIFER Last Admin: 09/20/18 21:20 Dose: 10 mg Atovaquone (Mepron -) 750 mg PO BIDWM JENNIFER Last Admin: 09/21/18 09:49 Dose: 750 mg Folic Acid (Folic Acid -) 1 mg PO DAILY JENNIFER Last Admin: 09/21/18 09:49 Dose: 1 mg Furosemide (Lasix -) 80 mg PO DAILY JENINFER Last Admin: 09/21/18 09:49 Dose: 80 mg Heparin Sodium (Porcine) (Heparin -) 5,000 unit SQ Q8H-IV JENNIFER Last Admin: 09/21/18 09:50 Dose: 5,000 unit Piperacillin Sod/Tazobactam (Sod 4.5 gm/ Dextrose) 100 mls @ 200 mls/hr IVPB Q8H-IV JENNIFER; Protocol Last Admin: 09/21/18 09:51 Dose: 200 mls/hr Insulin Aspart (Novolog Vial Sliding Scale -) 1 vial SQ ACHS JENNIFER; Protocol Last Admin: 09/21/18 11:15 Dose: 4 units Potassium Chloride (K-Dur -) 40 meq PO BID JENNIFER Stop: 09/22/18 10:01 Last Admin: 09/21/18 09:49 Dose: 40 meq Terazosin HCl (Hytrin -) 10 mg PO HS [facility] Last Admin: 09/20/18 21:26 Dose: 10 mg a/p r/p aspiration pneumonia HCAP doubt PCP given acuity of process ?recurrent UTI r/u cultures continue zosyn continue mepron f/u fungitell get medical records elevated creatinine- check renal sonogram DNR/DNI
[2018-09-21] MEDS ORDERED: ACETAMINOPHEN 325 MG TABLET (FP) PO ONE (18:57)
[2018-09-21] MEDS: ATORVASTATIN CA 10 MG TABLET (FP) PO SCH (22:12)
[2018-09-21] MEDS: TERAZOSIN HCL 5 MG CAPSULE PO SCH (22:13)
[2018-09-22] MEDS ORDERED: PIPERACILLIN/TAZOBACTAM 4.5 GM VIAL IVPB ONE ×3 (02:27→17:20)
[2018-09-22] MEDS ORDERED: DEXTROSE 5%-WATER 100 ML IVPB ONE ×3 (02:28→17:20)
[2018-09-22] MEDS: HEPARIN NA (PORCINE) 5,000 UNITS/ML 1ML VIAL SQ SCH ×3 (02:41→17:26)
[2018-09-22] MEDS: PIPERACILLIN/TAZOB 4.5 GM 4.5 GM in DEXTROSE 5%-WATER 100 ML IVPB SCH ×3 (02:42→17:27)
[2018-09-22] MEDS: INSULIN SLIDING SCALE (NOVOLOG) 1 VIAL SQ SCH ×4 (06:32→22:01)
[2018-09-22] MEDS: ACETAMINOPHEN 325 MG TABLET (FP) PO PRN ×2 (06:32→15:58)
[2018-09-22 06:58] LABS: BASO % 0.3 % (0-2.0); EOS % 0.8 % (0-4.5); HEMATOCRIT 31.8 % (35.4-49); LYMPH % 10.7 % (8-40); MCHC 34.5 g/dl (32.0-35.9); MEAN CELL VOLUME 84.2 fl (80-96); MONO % 6.9 % (3.8-10.2); NEUT % 81.3 % (42.8-82.8); PLATELET COUNT 105 K/MM3 (134-434); RBC 3.78 M/mm3 (4.00-5.60); RDW 16.2 % (11.9-15.9); WHITE BLOOD COUNT 6.3 K/mm3 (4.0-10.0)
[2018-09-22] MEDS: ALBUTEROL SO4 2.5/IPRATROPIUM 0.5 INH SOL 3 ML VIAL.NEB. NEB SCH ×3 (07:21→20:25)
[2018-09-22 07:33] LABS: ALBUMIN 2.8 g/dl (3.4-5.0); ALK PHOS 79 U/L (45-117); ANION GAP 9 MMOL/L (8-16); BILIRUBIN,TOTAL 0.9 mg/dL (0.2-1); BLOOD UREA NITROGEN 14 mg/dL (7-18); CALCIUM 7.8 mg/dL (8.5-10.1); CHLORIDE 99 mmol/L (98-107); CO2 28 mmol/L (21-32); CREATININE 1.4 mg/dL (0.55-1.3); GLUCOSE,RANDOM 198 mg/dL (74-106); MAGNESIUM 1.6 mg/dL (1.8-2.4); PHOSPHOROUS 2.5 mg/dL (2.5-4.9); POTASSIUM 3.3 mmol/L (3.5-5.1); SGOT/AST 32 U/L (15-37); SGPT/ALT 34 U/L (13-61); SODIUM 135 mmol/L (136-145); TOT PROT 5.9 g/dl (6.4-8.2)
[2018-09-22] MEDS ORDERED: POTASSIUM CHLORIDE TABS 20 MEQ TABLET.ER (FP) PO ONE (08:18)
[2018-09-22] MEDS ORDERED: PT OWN MED DRAWER 7, Y5N ONE ×2 (08:47→17:20)
[2018-09-22] MEDS: ATOVAQUONE 750 MG/5 ML (UNIT-DOSE PACKAGING) PO SCH ×2 (08:49→17:27)
[2018-09-22] MEDS: FOLIC ACID 1 MG TABLET (FP) PO SCH (10:41)
[2018-09-22] MEDS: FUROSEMIDE 40 MG TABLET (FP) PO SCH (10:41)
[2018-09-22] MEDS: POTASSIUM CHLORIDE TABS 20 MEQ TABLET.ER (FP) PO SCH (10:42)
--- NOTE | 2018-09-22 11:55 | PN ---
Progress Note, Physician History of Present Illness: PULMONARY ALERT,FEELING BETTER,LESS COUGH,SOB IMPROVING - Current Medication List Current Medications: Active Medications Acetaminophen (Tylenol -) 650 mg PO Q6H PRN PRN Reason: FEVER Last Admin: 09/22/18 06:32 Dose: 650 mg Albuterol/Ipratropium (Duoneb -) 1 amp NEB RTID [facility] Last Admin: 09/22/18 07:21 Dose: 1 amp Atorvastatin Calcium (Lipitor -) 10 mg PO HS [facility] Last Admin: 09/21/18 22:12 Dose: 10 mg Atovaquone (Mepron -) 750 mg PO BIDWM [facility] Last Admin: 09/22/18 08:49 Dose: 750 mg Folic Acid (Folic Acid -) 1 mg PO DAILY [facility] Last Admin: 09/22/18 10:41 Dose: 1 mg Furosemide (Lasix -) 80 mg PO DAILY [facility] Last Admin: 09/22/18 10:41 Dose: 80 mg Heparin Sodium (Porcine) (Heparin -) 5,000 unit SQ Q8H-IV [facility] Last Admin: 09/22/18 10:42 Dose: 5,000 unit Piperacillin Sod/Tazobactam (Sod 4.5 gm/ Dextrose) 100 mls @ 200 mls/hr IVPB Q8H-IV [facility]; Protocol Last Admin: 09/22/18 10:41 Dose: 200 mls/hr Insulin Aspart (Novolog Vial Sliding Scale -) 1 vial SQ ACHS [facility]; Protocol Last Admin: 09/22/18 11:49 Dose: 6 units Terazosin HCl (Hytrin -) 10 mg PO [facility] Last Admin: 09/21/18 22:13 Dose: 10 mg - Objective Vital Signs: Vital Signs Temperature 99.0 F 09/22/18 08:51 Pulse Rate 91 H 09/22/18 08:51 Respiratory Rate 22 H 09/22/18 08:51 Blood Pressure 109/62 09/22/18 08:51 O2 Sat by Pulse Oximetry (%) 95 09/21/18 21:00 Constitutional: Yes: Well Nourished, Calm Eyes: Yes: WNL HENT: Yes: WNL Neck: Yes: WNL Cardiovascular: Yes: Regular Rate and Rhythm, S1, S2 Respiratory: Yes: Rales (FEW DARVIN CRACKLES R>L) Gastrointestinal: Yes: Normal Bowel Sounds, Soft Extremities: Yes: WNL Edema: No Labs: CBC, BMP 09/22/18 06:00 09/22/18 06:00 INR, PTT INR 1.23 (0.83-1.09) H 09/20/18 14:31 Assessment/Plan Problem List - Problems (1) Rheumatoid arthritis Code(s): M06.9 - RHEUMATOID ARTHRITIS, UNSPECIFIED (2) Fever Code(s): R50.9 - FEVER, UNSPECIFIED (3) PNA (pneumonia) Code(s): J18.9 - PNEUMONIA, UNSPECIFIED ORGANISM (4) Weakness Code(s): R53.1 - WEAKNESS (5) COPD (chronic obstructive pulmonary disease) Code(s): J44.9 - CHRONIC OBSTRUCTIVE PULMONARY DISEASE, UNSPECIFIED (6) ILD (interstitial lung disease) Code(s): J84.9 - INTERSTITIAL PULMONARY DISEASE, UNSPECIFIED Assessment/Plan IMP PNEUMONIA ILD RA H/P PCP PNEUMONIA SUPPLEMENTAL O2 BRONCHODILATORS ABX PER ID MONITOR LYTES F/U CHEST X-RAYS DR WEEKS
--- NOTE | 2018-09-22 16:41 | PN ---
Progress Note (short form) - Note Progress Note: intermittent fevers alert Vital Signs Period Temp Pulse Resp BP Sys/Wagoner Pulse Ox Last 24 Hr 98.2 F-101.5 F 83-100 20-22 109-133/62-72 95 cor-rrr llungs decreased bs at bases abd soft,nt ext no edema CBC, BMP 09/22/18 06:00 09/22/18 06:00 Microbiology 09/20/18 11:50 Blood - Peripheral Venous Blood Culture - Preliminary NO GROWTH OBTAINED AFTER 48 HOURS, INCUBATION TO CONTINUE FOR 3 DAYS. 09/20/18 11:50 Blood - Peripheral Venous Blood Culture - Preliminary NO GROWTH OBTAINED AFTER 48 HOURS, INCUBATION TO CONTINUE FOR 3 DAYS. 09/20/18 17:08 Urine - Urine Clean Catch Urine Culture - Final NO GROWTH OBTAINED 09/20/18 17:08 Urine For Antigen Detection Legionella Antigen - Final 09/20/18 17:08 Urine For Antigen Detection Streptococcus pneumoniae Antigen (M - Final ct scan copd with ILD, bilateral opacities c/w neumonia, ?nodular infiltrate versus rul mass Current Medications Acetaminophen (Tylenol -) 650 mg PO Q6H PRN PRN Reason: FEVER Last Admin: 09/22/18 15:58 Dose: 650 mg Albuterol/Ipratropium (Duoneb -) 1 amp NEB RTID [facility] Last Admin: 09/22/18 14:33 Dose: 1 amp Atorvastatin Calcium (Lipitor -) 10 mg PO HS [facility] Last Admin: 09/21/18 22:12 Dose: 10 mg Atovaquone (Mepron -) 750 mg PO BIDWM JENNIFER Last Admin: 09/22/18 08:49 Dose: 750 mg Folic Acid (Folic Acid -) 1 mg PO DAILY [facility] Last Admin: 09/22/18 10:41 Dose: 1 mg Furosemide (Lasix -) 80 mg PO DAILY [facility] Last Admin: 09/22/18 10:41 Dose: 80 mg Heparin Sodium (Porcine) (Heparin -) 5,000 unit SQ Q8H-IV JENNIFER Last Admin: 09/22/18 10:42 Dose: 5,000 unit Piperacillin Sod/Tazobactam (Sod 4.5 gm/ Dextrose) 100 mls @ 200 mls/hr IVPB Q8H-IV JENNIFER; Protocol Last Admin: 09/22/18 10:41 Dose: 200 mls/hr Insulin Aspart (Novolog Vial Sliding Scale -) 1 vial SQ ACHS JENNIFER; Protocol Last Admin: 09/22/18 11:49 Dose: 6 units Terazosin HCl (Hytrin -) 10 mg PO HS JENNIFER Last Admin: 09/21/18 22:13 Dose: 10 mg a/p r/p aspiration pneumonia HCAP doubt PCP given acuity of process ?recurrent UTI r/u cultures continue zosyn continue mepron f/u fungitell get medical records MRSA screen nares add vancomycin resp virus pcr panel elevated creatinine- check renal sonogram DNR/DNI
--- NOTE | 2018-09-22 17:56 | PN ---
Physical Exam: SUBJECTIVE: Patient seen and examined at bedside. Febrile overnight and this am. Denies chest pain or shortness of breath. OBJECTIVE: Vital Signs Period Temp Pulse Resp BP Sys/Wagoner Pulse Ox Last 24 Hr 98.2 F-101.5 F 83-100 - 109-133/62-72 95 GENERAL: NAD AAOx3 HEAD: Atraumatic/Normocephalic EYES: EOMI Sclera Clear ENT: MMM NECK: Trachea midline, full range of motion, supple. LUNGS: Crackles Right base HEART: RRR S1S2 ABDOMEN: NDNT EXTREMITIES: No CCE. Distal pulses 2 +. No cracks or open wounds on feet NEUROLOGICAL: No neuro deficits appreciated PSYCH: Normal mood, normal affect. SKIN: No rashes or skin lesions appreciated Laboratory Results - last 24 hr 09/21/18 09/22/18 09/22/18 22:11 06:00 06:00 WBC 6.3 RBC 3.78 L Hgb 11.0 L Hct 31.8 L MCV 84.2 MCH 29.0 MCHC 34.5 RDW 16.2 H Plt Count 105 L MPV 8.0 Absolute Neuts (auto) 5.1 Neutrophils % 81.3 Lymphocytes % 10.7 D Monocytes % 6.9 Eosinophils % 0.8 Basophils % 0.3 Nucleated RBC % 0 Sodium 135 L Potassium 3.3 L Chloride 99 Carbon Dioxide 28 Anion Gap 9 BUN 14 Creatinine 1.4 H Creat Clearance w eGFR 49.96 POC Glucometer 236 Random Glucose 198 H Calcium 7.8 L Phosphorus 2.5 Magnesium 1.6 L Total Bilirubin 0.9 AST 32 ALT 34 Alkaline Phosphatase 79 Total Protein 5.9 L Albumin 2.8 L 09/22/18 09/22/18 09/22/18 06:30 11:12 17:18 WBC RBC Hgb Hct MCV MCH MCHC RDW Plt Count MPV Absolute Neuts (auto) Neutrophils % Lymphocytes % Monocytes % Eosinophils % Basophils % Nucleated RBC % Sodium Potassium Chloride Carbon Dioxide Anion Gap BUN Creatinine Creat Clearance w eGFR POC Glucometer 218 300 224 Random Glucose Calcium Phosphorus Magnesium Total Bilirubin AST ALT Alkaline Phosphatase Total Protein Albumin Active Medications Generic Name Dose Route Start Last Admin Trade Name Freq PRN Reason Stop Dose Admin Acetaminophen 650 mg 09/21/18 18:58 09/22/18 15:58 Tylenol - PO 650 mg Q6H PRN Administration FEVER Albuterol/Ipratropium 1 amp 09/20/18 20:00 09/22/18 14:33 Duoneb - NEB 1 amp RTID JENNIFER Administration Atorvastatin Calcium 10 mg 09/20/18 22:00 09/21/18 22:12 Lipitor - PO 10 mg HS JENNIFER Administration Atovaquone 750 mg 09/20/18 17:30 09/22/18 17:27 Mepron - PO 750 mg BIDWM JENNIFER Administration Folic Acid 1 mg 09/21/18 10:00 09/22/18 10:41 Folic Acid - PO 1 mg DAILY JENNIFER Administration Furosemide 80 mg 09/21/18 10:00 09/22/18 10:41 Lasix - PO 80 mg DAILY JENNIFER Administration Heparin Sodium (Porcine) 5,000 unit 09/20/18 18:00 09/22/18 17:26 Heparin - SQ 5,000 unit Q8H-IV JENNIFER Administration Piperacillin Sod/Tazobactam 100 mls @ 200 mls/hr 09/20/18 18:00 09/22/18 17: 27 Sod 4.5 gm/ Dextrose IVPB 200 mls/hr Q8H-IV JENNIFER Administration Protocol Vancomycin HCl 1,250 mg/ 250 mls @ 166.667 mls/hr 09/22/18 17:00 Dextrose IVPB Q24H JENNIFER Protocol Insulin Aspart 1 vial 09/20/18 16:30 09/22/18 17:26 Novolog Vial Sliding Scale - SQ 4 units ACHS JENNIFER Administration Protocol Terazosin HCl 10 mg 09/20/18 22:00 09/21/18 22:13 Hytrin - PO 10 mg HS JENNIFER Administration ASSESSMENT/PLAN: 73 yo M h/o COPD, IDDM, CHF, and emphysema admitted to the floor for severe sepsis. #Severe sepsis 2/2 PNA - 2/2 PNA, likely aspiration, cannot r/o HCAP, PCP or viral origin - Blood/Urine cultures---> Negative -Vanc and zosyn -atovaquone 750mg bid -Lactate/ WBC WNL -Urine Legionella/Strep Pneu antigens Negative Chest CT---> Bibasilar honey combing /RUL irregular density b/l extensive chronic infiltrative changes. RUL Nodule appreciated. Follow up CT in 2 weeks advised. #Elevated Cr - unknown baseline - renal U/S--> Morphologically normal kidneys. No evidence of Vina. - urine lytes #COPD - cont. duoneb #CHF - not in exacerbation - cont. daily lasix po 80mg - obtain ECHO #IDDM - BGM and sliding scale #FEN - No Fluids - Monitor Electrolytes - diabetic diet DVT ppx w/ heparin sq Visit type - Emergency Visit Emergency Visit: Yes ED Registration Date: 09/20/18 Care time: The patient presented to the Emergency Department on the above date and was hospitalized for further evaluation of their emergent condition. - New Patient This patient is new to me today: Yes Date on this admission: 09/22/18 - Critical Care Critical Care patient: No - Discharge Referral Referred to [facility] Med P.C[facility] No
[2018-09-22] MEDS: VANCOMYCIN 1,250 MG in DEXTROSE 5%-WATER - 250 ML IVPB SCH (18:15)
--- NOTE | 2018-09-22 19:11 | PN ---
Teaching Attending Note Name of Resident: Collin Ventura ATTENDING PHYSICIAN STATEMENT I saw and evaluated the patient. I reviewed the resident's note and discussed the case with the resident. I agree with the resident's findings and plan as documented. SUBJECTIVE: Patient is comfortable, feels better, with no acute distress. OBJECTIVE: Vital Signs Temperature 100.5 F H 09/22/18 14:00 Pulse Rate 87 09/22/18 14:00 Respiratory Rate 22 H 09/22/18 14:00 Blood Pressure 110/68 09/22/18 14:00 O2 Sat by Pulse Oximetry (%) 96 09/22/18 09:00 GENERAL: Awake, alert, in mild respiratory distress. HEAD: No signs of trauma EYES: PERRLA, EOMI, sclera anicteric, conjunctiva clear ENT: oropharynx clear without exudates. MMM LUNGS: decreased BS BL ,RR 20 HEART: RRR of 87 , normal S1 and S2, no murmurs, rubs or gallops ABDOMEN: Soft, nontender, normoactive bowel sounds. No guarding, no rebound. No masses EXTREMITIES: b/l symmetric LE pitting edema NEUROLOGICAL: Normal speech, cranial nerves intact, equal strength and sensation b/l SKIN: Warm, Dry, normal turgor, no rashes or lesions noted. CBCD WBC 6.3 K/mm3 (4.0-10.0) 09/22/18 06:00 RBC 3.78 M/mm3 (4.00-5.60) L 09/22/18 06:00 Hgb 11.0 GM/dL (11.7-16.9) L 09/22/18 06:00 Hct 31.8 % (35.4-49) L 09/22/18 06:00 MCV 84.2 fl (80-96) 09/22/18 06:00 MCHC 34.5 g/dl (32.0-35.9) 09/22/18 06:00 RDW 16.2 % (11.9-15.9) H 09/22/18 06:00 Plt Count 105 K/MM3 (134-434) L 09/22/18 06:00 MPV 8.0 fl (7.5-11.1) 09/22/18 06:00 CMP Sodium 135 mmol/L (136-145) L 09/22/18 06:00 Potassium 3.3 mmol/L (3.5-5.1) L 09/22/18 06:00 Chloride 99 mmol/L (98-107) 09/22/18 06:00 Carbon Dioxide 28 mmol/L (21-32) 09/22/18 06:00 Anion Gap 9 MMOL/L (8-16) 09/22/18 06:00 BUN 14 mg/dL (7-18) 09/22/18 06:00 Creatinine 1.4 mg/dL (0.55-1.3) H 09/22/18 06:00 Creat Clearance w eGFR 49.96 (>60) 09/22/18 06:00 Random Glucose 198 mg/dL (74-106) H 09/22/18 06:00 Calcium 7.8 mg/dL (8.5-10.1) L 09/22/18 06:00 Total Bilirubin 0.9 mg/dL (0.2-1) 09/22/18 06:00 AST 32 U/L (15-37) 09/22/18 06:00 ALT 34 U/L (13-61) 09/22/18 06:00 Alkaline Phosphatase 79 U/L (45-117) 09/22/18 06:00 Total Protein 5.9 g/dl (6.4-8.2) L 09/22/18 06:00 Albumin 2.8 g/dl (3.4-5.0) L 09/22/18 06:00 CARDIAC ENZYMES Troponin I < 0.02 ng/ml (0.00-0.05) 09/20/18 11:45 Current Medications Generic Name Dose Route Start Last Admin Trade Name Freq PRN Reason Stop Dose Admin Acetaminophen 650 mg 09/21/18 18:58 09/22/18 15:58 Tylenol - PO 650 mg Q6H PRN Administration FEVER Albuterol/Ipratropium 1 amp 09/20/18 20:00 09/22/18 14:33 Duoneb - NEB 1 amp RTID JENNIFER Administration Atorvastatin Calcium 10 mg 09/20/18 22:00 09/21/18 22:12 Lipitor - PO 10 mg HS JENNIFER Administration Atovaquone 750 mg 09/20/18 17:30 09/22/18 17:27 Mepron - PO 750 mg BIDWM JENNIFER Administration Folic Acid 1 mg 09/21/18 10:00 09/22/18 10:41 Folic Acid - PO 1 mg DAILY JENNIFER Administration Furosemide 80 mg 09/21/18 10:00 09/22/18 10:41 Lasix - PO 80 mg DAILY JENNIFER Administration Heparin Sodium (Porcine) 5,000 unit 09/20/18 18:00 09/22/18 17:26 Heparin - SQ 5,000 unit Q8H-IV JENNIFER Administration Piperacillin Sod/Tazobactam 100 mls @ 200 mls/hr 09/20/18 18:00 09/22/18 17: 27 Sod 4.5 gm/ Dextrose IVPB 200 mls/hr Q8H-IV JENNIFER Administration Protocol Vancomycin HCl 1,250 mg/ 250 mls @ 166.667 mls/hr 09/22/18 17:00 09/22/18 18: 15 Dextrose IVPB 166.667 mls/hr Q24H JENNIFER Administration Protocol Insulin Aspart 1 vial 09/20/18 16:30 09/22/18 17:26 Novolog Vial Sliding Scale - SQ 4 units ACHS JENNIFER Administration Protocol Terazosin HCl 10 mg 09/20/18 22:00 09/21/18 22:13 Hytrin - PO 10 mg HS JENNIFER Administration Home Medications Medication Instructions Recorded Folic Acid 1 mg PO DAILY 09/20/18 Furosemide [Lasix] 80 mg PO DAILY 09/20/18 Insulin Glargine,Hum.rec.anlog 15 unit SQ DAILY 09/20/18 [Basaglar Kwikpen U-100] Lovastatin 20 mg PO HS 09/20/18 Terazosin HCl 10 mg PO HS 09/20/18 metFORMIN HCL [Metformin HCl] 850 mg PO DAILY 09/20/18 ASSESSMENT AND PLAN: Patient is a 73 yo M h/o COPD, IDDM, CHF, and emphysema brought in by family member to the ED due to altered mental status. Was admitted for sepsis and HCAP. #Severe sepsis due to Pneumonia (HCAP) continue current antibiotics, patient was recently discharged 21 days ago from [facility] , s/p one dose zithromax for possible legionella, legionella antigen and strept antigen negative. Continue vancomycin and zosyn , add atovaquone 750mg bid ( for possible PCP). ID on the case. #Possible recurrent UTI, patient was treated with Cipro x 14 days just finished the course. #Elevated creatinine- renal sonogram is negative. #Hx of COPD continue with duoneb # Hx of COPD will give him his home dose lasix, echo for am DVT ppx : heparin sq papers from [facility] is in the chart. DNR/DNI
[2018-09-22] MEDS: TERAZOSIN HCL 5 MG CAPSULE PO SCH (22:00)
[2018-09-22] MEDS: ATORVASTATIN CA 10 MG TABLET (FP) PO SCH (22:00)
[2018-09-23] MEDS ORDERED: DEXTROSE 5%-WATER 100 ML IVPB ONE ×3 (02:37→18:51)
[2018-09-23] MEDS ORDERED: PIPERACILLIN/TAZOBACTAM 4.5 GM VIAL IVPB ONE ×3 (02:37→18:50)
[2018-09-23] MEDS: PIPERACILLIN/TAZOB 4.5 GM 4.5 GM in DEXTROSE 5%-WATER 100 ML IVPB SCH ×3 (02:52→18:54)
[2018-09-23] MEDS: HEPARIN NA (PORCINE) 5,000 UNITS/ML 1ML VIAL SQ SCH ×3 (02:52→17:43)
[2018-09-23] MEDS: INSULIN SLIDING SCALE (NOVOLOG) 1 VIAL SQ SCH ×4 (06:44→23:15)
[2018-09-23] MEDS: ALBUTEROL SO4 2.5/IPRATROPIUM 0.5 INH SOL 3 ML VIAL.NEB. NEB SCH ×3 (07:06→20:50)
[2018-09-23 07:11] LABS: HEMATOCRIT 33.6 % (35.4-49); HEMOGLOBIN 11.3 GM/dL (11.7-16.9); MCH 28.6 pg (25.7-33.7); MCHC 33.8 g/dl (32.0-35.9); MEAN CELL VOLUME 84.6 fl (80-96); MEAN PLT VOLUME 8.2 fl (7.5-11.1); PLATELET COUNT 119 K/MM3 (134-434); RBC 3.97 M/mm3 (4.00-5.60); WHITE BLOOD COUNT 5.3 K/mm3 (4.0-10.0)
[2018-09-23 07:42] LABS: ANION GAP 9 MMOL/L (8-16); BLOOD UREA NITROGEN 16 mg/dL (7-18); CHLORIDE 98 mmol/L (98-107); CO2 27 mmol/L (21-32); CREATININE 1.4 mg/dL (0.55-1.3); GLUCOSE,RANDOM 194 mg/dL (74-106); MAGNESIUM 1.8 mg/dL (1.8-2.4); PHOSPHOROUS 2.4 mg/dL (2.5-4.9); POTASSIUM 3.4 mmol/L (3.5-5.1); SODIUM 134 mmol/L (136-145)
[2018-09-23] MEDS: ATOVAQUONE 750 MG/5 ML (UNIT-DOSE PACKAGING) PO SCH ×2 (08:00→17:44)
[2018-09-23] MEDS ORDERED: PT OWN MED DRAWER 7, Y5N ONE ×3 (09:28→17:59)
[2018-09-23] MEDS ORDERED: POTASSIUM CHLORIDE TABS 20 MEQ TABLET.ER (FP) PO ONE (09:30)
[2018-09-23] MEDS: FUROSEMIDE 40 MG TABLET (FP) PO SCH (09:34)
[2018-09-23] MEDS: FOLIC ACID 1 MG TABLET (FP) PO SCH (09:34)
[2018-09-23] MEDS: guaiFENesin/CODEINE 5 ML UNIT-DOSE CUPS PO PRN (09:37)
[2018-09-23] MEDS: ACETAMINOPHEN 325 MG TABLET (FP) PO PRN ×2 (11:59→18:55)
[2018-09-23] MEDS ORDERED: INSULIN (NOVOLOG) ASPART 100 UNITS/ML 10ML VIAL ONE ×2 (12:09→22:38)
--- NOTE | 2018-09-23 13:26 | PN ---
Progress Note, Physician History of Present Illness: PULMONARY ALERT,FEELING BETTER ,NO DISTRESS - Current Medication List Current Medications: Active Medications Acetaminophen (Tylenol -) 650 mg PO Q6H PRN PRN Reason: FEVER Last Admin: 09/23/18 11:59 Dose: 650 mg Albuterol/Ipratropium (Duoneb -) 1 amp NEB RTID [facility] Last Admin: 09/23/18 07:06 Dose: 1 amp Atorvastatin Calcium (Lipitor -) 10 mg PO HS [facility] Last Admin: 09/22/18 22:00 Dose: 10 mg Atovaquone (Mepron -) 750 mg PO BIDWM JENNIFER Last Admin: 09/23/18 08:00 Dose: 750 mg Folic Acid (Folic Acid -) 1 mg PO DAILY [facility] Last Admin: 09/23/18 09:34 Dose: 1 mg Furosemide (Lasix -) 80 mg PO DAILY [facility] Last Admin: 09/23/18 09:34 Dose: 80 mg Guaifenesin/Codeine Phosphate (Robitussin Ac -) 5 ml PO BID PRN PRN Reason: COUGH Last Admin: 09/23/18 09:37 Dose: 5 ml Heparin Sodium (Porcine) (Heparin -) 5,000 unit SQ Q8H-IV JENNIFER Last Admin: 09/23/18 09:34 Dose: 5,000 unit Piperacillin Sod/Tazobactam (Sod 4.5 gm/ Dextrose) 100 mls @ 200 mls/hr IVPB Q8H-IV JENNIFER; Protocol Last Admin: 09/23/18 09:35 Dose: 200 mls/hr Vancomycin HCl 1,250 mg/ (Dextrose) 250 mls @ 166.667 mls/hr IVPB Q24H JENNIFER; Protocol Last Admin: 09/22/18 18:15 Dose: 166.667 mls/hr Insulin Aspart (Novolog Vial Sliding Scale -) 1 vial SQ ACHS [facility]; Protocol Last Admin: 09/23/18 12:13 Dose: 6 units Terazosin HCl (Hytrin -) 10 mg PO HS [facility] Last Admin: 09/22/18 22:00 Dose: 10 mg - Objective Vital Signs: Vital Signs Temperature 99.4 F 09/23/18 13:13 Pulse Rate 104 H 09/23/18 13:13 Respiratory Rate 18 09/23/18 13:13 Blood Pressure 124/68 09/23/18 13:13 O2 Sat by Pulse Oximetry (%) 95 09/22/18 21:00 Constitutional: Yes: Well Nourished, Calm Eyes: Yes: WNL HENT: Yes: WNL Neck: Yes: WNL Cardiovascular: Yes: Regular Rate and Rhythm, S1, S2 Respiratory: Yes: Rales (FEW SCATTERED CRACKLES) Gastrointestinal: Yes: Normal Bowel Sounds, Soft Extremities: Yes: WNL Edema: No Labs: CBC, BMP 09/23/18 06:00 09/23/18 06:00 INR, PTT INR 1.23 (0.83-1.09) H 09/20/18 14:31 Assessment/Plan Problem List - Problems (1) Rheumatoid arthritis Code(s): M06.9 - RHEUMATOID ARTHRITIS, UNSPECIFIED (2) Fever Code(s): R50.9 - FEVER, UNSPECIFIED (3) PNA (pneumonia) Code(s): J18.9 - PNEUMONIA, UNSPECIFIED ORGANISM (4) Weakness Code(s): R53.1 - WEAKNESS (5) COPD (chronic obstructive pulmonary disease) Code(s): J44.9 - CHRONIC OBSTRUCTIVE PULMONARY DISEASE, UNSPECIFIED (6) ILD (interstitial lung disease) Code(s): J84.9 - INTERSTITIAL PULMONARY DISEASE, UNSPECIFIED Assessment/Plan IMP PNEUMONIA ILD RA H/P PCP PNEUMONIA SUPPLEMENTAL O2 BRONCHODILATORS ABX PER ID MONITOR GIOVANA F/U CHEST X-RAYS DR WEEKS
--- NOTE | 2018-09-23 15:02 | PN ---
Progress Note (short form) - Note Progress Note: afebrile c/o stomach upset Vital Signs Period Temp Pulse Resp BP Sys/Wagoner Pulse Ox Last 24 Hr 97.9 F-100.2 F 87-107 18- 97-138/55-87 95 cor-rrr lungs decrerased bs at bases, crackle at bases abd soft,nt ext no edema CBC, BMP 09/23/18 06:00 09/23/18 06:00 Microbiology 09/20/18 11:50 Blood - Peripheral Venous Blood Culture - Preliminary NO GROWTH OBTAINED AFTER 72 HOURS, INCUBATION TO CONTINUE FOR 2 DAYS. 09/20/18 11:50 Blood - Peripheral Venous Blood Culture - Preliminary NO GROWTH OBTAINED AFTER 72 HOURS, INCUBATION TO CONTINUE FOR 2 DAYS. 09/22/18 18:15 Urine - Urine Clean Catch Legionella Antigen - Final 09/22/18 18:15 Urine - Urine Clean Catch Streptococcus pneumoniae Antigen ( M - Final 09/20/18 17:08 Urine - Urine Clean Catch Urine Culture - Final NO GROWTH OBTAINED 09/20/18 17:08 Urine For Antigen Detection Legionella Antigen - Final 09/20/18 17:08 Urine For Antigen Detection Streptococcus pneumoniae Antigen (M - Final ct scan copd with ILD, bilateral opacities c/w neumonia, ?nodular infiltrate versus rul mass Current Medications Acetaminophen (Tylenol -) 650 mg PO Q6H PRN PRN Reason: FEVER Last Admin: 09/23/18 11:59 Dose: 650 mg Albuterol/Ipratropium (Duoneb -) 1 amp NEB RTID [facility] Last Admin: 09/23/18 13:37 Dose: 1 amp Atorvastatin Calcium (Lipitor -) 10 mg PO HS [facility] Last Admin: 09/22/18 22:00 Dose: 10 mg Atovaquone (Mepron -) 750 mg PO BIDWM [facility] Last Admin: 09/23/18 08:00 Dose: 750 mg Folic Acid (Folic Acid -) 1 mg PO DAILY [facility] Last Admin: 09/23/18 09:34 Dose: 1 mg Furosemide (Lasix -) 80 mg PO DAILY [facility] Last Admin: 09/23/18 09:34 Dose: 80 mg Guaifenesin/Codeine Phosphate (Robitussin Ac -) 5 ml PO BID PRN PRN Reason: COUGH Last Admin: 09/23/18 09:37 Dose: 5 ml Heparin Sodium (Porcine) (Heparin -) 5,000 unit SQ Q8H-IV JENNIFER Last Admin: 09/23/18 09:34 Dose: 5,000 unit Piperacillin Sod/Tazobactam (Sod 4.5 gm/ Dextrose) 100 mls @ 200 mls/hr IVPB Q8H-IV JENNIFER; Protocol Last Admin: 09/23/18 09:35 Dose: 200 mls/hr Vancomycin HCl 1,250 mg/ (Dextrose) 250 mls @ 166.667 mls/hr IVPB Q24H JENNIFER; Protocol Last Admin: 09/22/18 18:15 Dose: 166.667 mls/hr Insulin Aspart (Novolog Vial Sliding Scale -) 1 vial SQ ACHS JENNIFER; Protocol Last Admin: 09/23/18 12:13 Dose: 6 units Terazosin HCl (Hytrin -) 10 mg PO HS JENNIFER Last Admin: 09/22/18 22:00 Dose: 10 mg a/p r/o aspiration pneumonia HCAP doubt PCP given acuity of process continue zosyn/vancomycin continue mepron f/u fungitell get medical records MRSA screen nares resp virus pcr panel ordered elevated creatinine-unchanged DNR/DNI
--- NOTE | 2018-09-23 15:56 | PN ---
Physical Exam: SUBJECTIVE: Patient seen and examined at bedside. No acute events overnight. SOB this am. Given nebulizer treatment with relief. OBJECTIVE: Vital Signs Period Temp Pulse Resp BP Sys/Wagoner Pulse Ox Last 24 Hr 97.9 F-100.2 F 87-107 18-22 97-138/55-87 95 GENERAL: NAD AAOx3 HEAD: Atraumatic/Normocephalic EYES: EOMI Sclera Clear ENT: MMM NECK: Trachea midline, full range of motion, supple. LUNGS: Bibaslar Crackles HEART: RRR S1S2 ABDOMEN: NDNT EXTREMITIES: No CCE. Distal pulses 2 +. No cracks or open wounds on feet NEUROLOGICAL: No neuro deficits appreciated PSYCH: Normal mood, normal affect. SKIN: No rashes or skin lesions appreciated Laboratory Results - last 24 hr 09/22/18 09/22/18 09/23/18 17:18 21:59 06:00 WBC 5.3 RBC 3.97 L Hgb 11.3 L Hct 33.6 L MCV 84.6 MCH 28.6 MCHC 33.8 RDW 16.0 H Plt Count 119 L MPV 8.2 Sodium Potassium Chloride Carbon Dioxide Anion Gap BUN Creatinine Creat Clearance w eGFR POC Glucometer 224 204 Random Glucose Calcium Phosphorus Magnesium 09/23/18 09/23/18 09/23/18 06:00 06:43 12:06 WBC RBC Hgb Hct MCV MCH MCHC RDW Plt Count MPV Sodium 134 L Potassium 3.4 L Chloride 98 Carbon Dioxide 27 Anion Gap 9 BUN 16 Creatinine 1.4 H Creat Clearance w eGFR 49.96 POC Glucometer 208 250 Random Glucose 194 H Calcium 8.0 L Phosphorus 2.4 L Magnesium 1.8 Active Medications Generic Name Dose Route Start Last Admin Trade Name Freq PRN Reason Stop Dose Admin Acetaminophen 650 mg 09/21/18 18:58 09/23/18 11:59 Tylenol - PO 650 mg Q6H PRN Administration FEVER Albuterol/Ipratropium 1 amp 09/20/18 20:00 09/23/18 13:37 Duoneb - NEB 1 amp RTID JENNIFER Administration Atorvastatin Calcium 10 mg 09/20/18 22:00 09/22/18 22:00 Lipitor - PO 10 mg HS JENNIFER Administration Atovaquone 750 mg 09/20/18 17:30 09/23/18 08:00 Mepron - PO 750 mg BIDWM JENNIFER Administration Folic Acid 1 mg 09/21/18 10:00 09/23/18 09:34 Folic Acid - PO 1 mg DAILY JENNIFER Administration Furosemide 80 mg 09/21/18 10:00 09/23/18 09:34 Lasix - PO 80 mg DAILY JENNIFER Administration Guaifenesin/Codeine Phosphate 5 ml 09/23/18 07:00 09/23/18 09:37 Robitussin Ac - PO 5 ml BID PRN Administration COUGH Heparin Sodium (Porcine) 5,000 unit 09/20/18 18:00 09/23/18 09:34 Heparin - SQ 5,000 unit Q8H-IV JENNIFER Administration Piperacillin Sod/Tazobactam 100 mls @ 200 mls/hr 09/20/18 18:00 09/23/18 09: 35 Sod 4.5 gm/ Dextrose IVPB 200 mls/hr Q8H-IV JENNIFER Administration Protocol Vancomycin HCl 1,250 mg/ 250 mls @ 166.667 mls/hr 09/22/18 17:00 09/22/18 18: 15 Dextrose IVPB 166.667 mls/hr Q24H JENNIFER Administration Protocol Insulin Aspart 1 vial 09/20/18 16:30 09/23/18 12:13 Novolog Vial Sliding Scale - SQ 6 units ACHS JENNIFER Administration Protocol Terazosin HCl 10 mg 09/20/18 22:00 09/22/18 22:00 Hytrin - PO 10 mg HS JENNIFER Administration ASSESSMENT/PLAN: 73 yo M h/o COPD, IDDM, ILD/Pulmonary fibrosis, rheumatoid arthritis, CHF, and emphysema admitted to the floor for severe sepsis. #Severe sepsis 2/2 PNA - 2/2 PNA, likely aspiration, cannot r/o HCAP, PCP or viral origin -Blood/Urine cultures---> Negative -Vanc and zosyn. Vanc trough tomorrow 09/24/18 -atovaquone 750mg bid for PCP prophylaxis -Lactate/ WBC WNL -Urine Legionella/Strep Pneu antigens Negative Chest CT---> Bibasilar honey combing /RUL irregular density b/l extensive chronic infiltrative changes. RUL Nodule appreciated. Follow up CT in 2 weeks advised. #Elevated Cr. Today 16/1.4. - unknown baseline - renal U/S--> Morphologically normal kidneys. No evidence of [place]. - urine lytes #COPD -cont. duoneb Prednisone 10 mg daily resumed. Spoke with son this evening, pt to be on prednisone 10 mg daily until October 26 when he meets with ILD doctor, Dr Pastrana. #CHF - cont. daily lasix po 80mg - ECHO---> Performed this am at bedside. Results pending. #IDDM - BGM and sliding scale #FEN - No Fluids - Monitor Electrolytes - diabetic diet DVT ppx w/ heparin sq Dispo: Med-Sug Visit type - Emergency Visit Emergency Visit: Yes ED Registration Date: 09/20/18 Care time: The patient presented to the Emergency Department on the above date and was hospitalized for further evaluation of their emergent condition. - New Patient This patient is new to me today: No - Critical Care Critical Care patient: No - Discharge Referral Referred to [facility] Med P.C.: No
[2018-09-23] MEDS: VANCOMYCIN 1,250 MG in DEXTROSE 5%-WATER - 250 ML IVPB SCH (17:43)
[2018-09-23] MEDS: predniSONE 10 MG TABLET (UD) PO SCH (18:55)
--- NOTE | 2018-09-23 19:01 | PN ---
Teaching Attending Note Name of Resident: Gen Méndez ATTENDING PHYSICIAN STATEMENT I saw and evaluated the patient. I reviewed the resident's note and discussed the case with the resident. I agree with the resident's findings and plan as documented. SUBJECTIVE: No fever or chills . SOb is better . cough is better . OBJECTIVE: NAD , pleasant , Awake, alert CV: RRR Lungs: bibasilar crackles . Abd: soft, , NT, ND , NL BS EXT: no edema ASSESSMENT AND PLAN: 73 y/o man with h/o ILD, PCP PNA, COPD, who presented with SOb and was found ot have PNA 1- PNA .Ct reviewed. cont zosyn and vanco vanco trough tomorrow need repeat CT of chest in 2 weeks to evaluate RUL mass HIV neg . B du glucan + , will d/w Id the significance. ? fungal infection 2- H/o ILD. records form [facility] reviewed. was discharged on prolonged predniosne taper and was supposed to be on 10 mg till October 26 - will resume prednisone - cont O2 through [place] - Nebs and inhalers - add symbicort 3- Dm : - cont SSi and add 10 of levemir. will confirm his home dose of lantus 4- ? CKD . renal uS with no hydro . monitor renal function f/u with nephro 5- DVT P X
[2018-09-23] MEDS: TERAZOSIN HCL 5 MG CAPSULE PO SCH (23:14)
[2018-09-23] MEDS: ATORVASTATIN CA 10 MG TABLET (FP) PO SCH (23:14)
[2018-09-23] MEDS: BUDESONIDE/FORMETEROL FUMARATE 160/4.5 mcg INHALER IH SCH (23:14)
--- NOTE | 2018-09-24 00:15 | ECHO ---
Version: 1 Name: MUSA HORAN Exam: Adult Echocardiogram Study Date: 09/23/2018, 8:13 AM Age: 73 Years MMode/2D Measurements & Calculations IVSd: 1.21 cm LVIDs: 2.48 cm LVIDd: 4.3 cm LVPWd: 0.85 cm LAV (MOD-bp): 30.2 ml Ao root diam: 2.6 cm LA dimension: 3.0 cm Doppler Measurements & Calculations MV E max barrett: 79.1 cm/sec Med E/e': 9.6 MV A max barrett: 109.6 cm/sec Med Peak E' Barrett: 8.3 cm/sec MV E/A: 0.72 Lat E/e': 8.0 Lat Peak E' Barrett: 9.9 cm/sec TR max barrett: 279.6 cm/sec TR max P.3 mmHg Left Ventricle There is mild concentric left ventricular hypertrophy. The left ventricle is normal in size. The lef t ventricular ejection fraction is normal. Ejection Fraction = 60%. The transmitral spectral Doppler f low pattern is suggestive of impaired LV relaxation. Right Ventricle The right ventricular systolic function is normal. Atria Normal left and right atrial size and function. Mitral Valve There is mild mitral valve thickening. There is trace to mild mitral regurgitation. Tricuspid Valve There is mild to moderate tricuspid regurgitation. Right ventricular systolic pressure is elevated a t 30- 40mmHg. There is mild pulmonary hypertension. Aortic Valve There is mild aortic valve thickening. Trace aortic regurgitation. Pulmonic Valve Trace to mild pulmonic valvular regurgitation. Great Vessels The aortic root is normal size. Pericardium/Pleura There is no pericardial effusion. Summary Statements There is mild concentric left ventricular hypertrophy. The left ventricle is normal in size. The left ventricular ejection fraction is normal. Ejection Fraction = 60%. The transmitral spectral Doppler flow pattern is suggestive of impaired LV relaxation. The right ventricular systolic function is normal. Normal left and right atrial size and function. There is mild mitral valve thickening. There is mild to moderate tricuspid regurgitation. Right ventricular systolic pressure is elevated at 30-40mmHg. There is mild pulmonary hypertension. There is trace to mild mitral regurgitation. There is mild aortic valve thickening. Trace aortic regurgitation. Trace to mild pulmonic valvular regurgitation. The aortic root is normal size. There is no pericardial effusion. Jimmy Nolasco MD 09/24/2018, 12:15 AM Ordering Physician: Jimmy Ramirez Performed By: Samantha Velez
[2018-09-24] MEDS ORDERED: DEXTROSE 5%-WATER 100 ML IVPB ONE ×3 (01:48→17:43)
[2018-09-24] MEDS ORDERED: PIPERACILLIN/TAZOBACTAM 4.5 GM VIAL IVPB ONE ×3 (01:48→17:43)
[2018-09-24] MEDS: PIPERACILLIN/TAZOB 4.5 GM 4.5 GM in DEXTROSE 5%-WATER 100 ML IVPB SCH ×3 (02:08→17:44)
[2018-09-24] MEDS: HEPARIN NA (PORCINE) 5,000 UNITS/ML 1ML VIAL SQ SCH ×3 (02:13→17:44)
[2018-09-24] MEDS: INSULIN SLIDING SCALE (NOVOLOG) 1 VIAL SQ SCH ×4 (06:31→21:18)
[2018-09-24] MEDS ORDERED: INSULIN (LEVEMIR) 100 UNITS/ML UNITS SQ SCH ×2 (07:00→08:10)
[2018-09-24] MEDS ORDERED: PT OWN MED DRAWER 7, Y5N ONE ×4 (07:09→20:32)
[2018-09-24] MEDS ORDERED: INSULIN (NOVOLOG) ASPART 100 UNITS/ML 10ML VIAL ONE ×3 (07:09→20:30)
[2018-09-24] MEDS ORDERED: INSULIN (LEVEMIR) 100 UNITS/ML UNITS SQ ONE (07:09)
[2018-09-24 07:36] LABS: HEMATOCRIT 32.2 % (35.4-49); HEMOGLOBIN 11.1 GM/dL (11.7-16.9); MCHC 34.4 g/dl (32.0-35.9); MEAN CELL VOLUME 84.2 fl (80-96); MEAN PLT VOLUME 8.2 fl (7.5-11.1); PLATELET COUNT 122 K/MM3 (134-434); RBC 3.83 M/mm3 (4.00-5.60); RDW 15.6 % (11.9-15.9); WHITE BLOOD COUNT 2.9 K/mm3 (4.0-10.0)
[2018-09-24 07:57] LABS: ANION GAP 8 MMOL/L (8-16); BLOOD UREA NITROGEN 20 mg/dL (7-18); CALCIUM 8.1 mg/dL (8.5-10.1); CHLORIDE 98 mmol/L (98-107); CO2 29 mmol/L (21-32); CREATININE 1.3 mg/dL (0.55-1.3); GLUCOSE,RANDOM 238 mg/dL (74-106); MAGNESIUM 1.9 mg/dL (1.8-2.4); PHOSPHOROUS 3.6 mg/dL (2.5-4.9); POTASSIUM 3.5 mmol/L (3.5-5.1); SODIUM 135 mmol/L (136-145)
[2018-09-24] MEDS: ATOVAQUONE 750 MG/5 ML (UNIT-DOSE PACKAGING) PO SCH ×2 (08:50→17:44)
[2018-09-24] MEDS: ALBUTEROL SO4 2.5/IPRATROPIUM 0.5 INH SOL 3 ML VIAL.NEB. NEB SCH ×3 (09:00→20:52)
[2018-09-24] MEDS: FOLIC ACID 1 MG TABLET (FP) PO SCH (09:42)
[2018-09-24] MEDS: FUROSEMIDE 40 MG TABLET (FP) PO SCH (09:42)
[2018-09-24] MEDS: predniSONE 10 MG TABLET (UD) PO SCH (09:42)
[2018-09-24] MEDS: BUDESONIDE/FORMETEROL FUMARATE 160/4.5 mcg INHALER IH SCH ×2 (09:43→21:19)
--- NOTE | 2018-09-24 11:39 | PN ---
Teaching Attending Note Name of Resident: Collin Ventura ATTENDING PHYSICIAN STATEMENT I saw and evaluated the patient. I reviewed the resident's note and discussed the case with the resident. I agree with the resident's findings and plan as documented. SUBJECTIVE: No SOB this am , has no abd pain, no VILLAFUERTE ,cough has improved OBJECTIVE: NAD , pleasant , Awake, alert CV: RRR Lungs: bibasilar crackles . Abd: soft, , NT, ND , NL BS EXT: no edema ASSESSMENT AND PLAN: 73 y/o man with h/o ILD, PCP PNA, COPD, who presented with SOb and was found ot have PNA 1- PNA . improved cont zosyn and vanco vanco trough today Needs repeat CT of chest in 2 weeks to evaluate RUL mass B d glucan + , will d/w ID. per records, B-D-glucan was 201 in 06/21, now 88. 2- H/o ILD. per records form [facility] , he was diagnosed with ILD/pulmonary fibrosis in depending on Ct findings. He refused bronch then. He was treated for PCP pnA due to elevated LDh and B-D-Glucan. He was resumed on MTX at [place]. He was readmitted to [facility] in and treated resp failure due to Rhnovirus infection and MTX induced pneumonitis. was discharged on prolonged predniosne taper and was supposed to be on 10 mg till October 26. MTX was permanently stopped then. he was dc on Mepron until he finishes his steroids - Resumed prednisone today - cont O2 through [place] - Nebs and inhalers - symbicort - cont mepron 3- DM : - cont SSi and increase levemir . 4- ? CKD . renal uS with no hydro . monitor renal function . No renal funciton found in his records from [facility], will check with PCP f/u with nephro 5- H/o D CHF: cont home dose lasix 80 daily 6- DVT P X: heparin
--- NOTE | 2018-09-24 12:47 | PN ---
Physical Exam: SUBJECTIVE: Patient seen and examined at bedside. No acute events overnight. Son Boris at bedside. OBJECTIVE: Vital Signs Period Temp Pulse Resp BP Sys/Wagoner Pulse Ox Last 24 Hr 98 F-99.4 F 74-104 18-20 99-124/59-70 93 GENERAL: No acute distress. Pleasant HEAD: Atraumatic/Normocephalic EYES: EOMI Sclera Clear ENT: MMM NECK: Trachea midline, full range of motion, supple. LUNGS: Crackles Right upper Lung field HEART: RRR S1S2 ABDOMEN: NDNT EXTREMITIES: No CCE. Distal pulses 2 +. NEUROLOGICAL: No neuro deficits appreciated PSYCH: Normal mood, normal affect. SKIN: No rashes or skin lesions appreciated Laboratory Results - last 24 hr 09/20/18 09/23/18 09/24/18 17:17 22:48 06:06 WBC RBC Hgb Hct MCV MCH MCHC RDW Plt Count MPV Sodium Potassium Chloride Carbon Dioxide Anion Gap BUN Creatinine Creat Clearance w eGFR POC Glucometer 260 245 Random Glucose Calcium Phosphorus Magnesium Beta-(1,3)-D-Glucan 88 H 09/24/18 09/24/18 09/24/18 06:30 06:30 11:52 WBC 2.9 L RBC 3.83 L Hgb 11.1 L Hct 32.2 L MCV 84.2 MCH 29.0 MCHC 34.4 RDW 15.6 Plt Count 122 L MPV 8.2 Sodium 135 L Potassium 3.5 Chloride 98 Carbon Dioxide 29 Anion Gap 8 BUN 20 H Creatinine 1.3 Creat Clearance w eGFR 54.42 POC Glucometer 214 Random Glucose 238 H Calcium 8.1 L Phosphorus 3.6 Magnesium 1.9 Beta-(1,3)-D-Glucan Active Medications Generic Name Dose Route Start Last Admin Trade Name Freq PRN Reason Stop Dose Admin Acetaminophen 650 mg 09/21/18 18:58 09/23/18 18:55 Tylenol - PO 650 mg Q6H PRN Administration FEVER Albuterol/Ipratropium 1 amp 09/20/18 20:00 09/24/18 09:00 Duoneb - NEB 1 amp RTID JENNIFER Administration Atorvastatin Calcium 10 mg 09/20/18 22:00 09/23/18 23:14 Lipitor - PO 10 mg HS JENNIFER Administration Atovaquone 750 mg 09/20/18 17:30 09/24/18 08:50 Mepron - PO 750 mg BIDWM JENN[facility]ER Administration Budesonide/Formoterol Fumarate 2 puff 09/23/18 22:00 09/24/18 09:43 Symbicort 160/4.5mcg - IH 2 puff BID JENN[facility]ER Administration Folic Acid 1 mg 09/21/18 10:00 09/24/18 09:42 Folic Acid - PO 1 mg DAILY JENN[facility]ER Administration Furosemide 80 mg 09/21/18 10:00 09/24/18 09:42 Lasix - PO 80 mg DAILY JENN[facility]ER Administration Guaifenesin/Codeine Phosphate 5 ml 09/23/18 07:00 09/23/18 09:37 Robitussin Ac - PO 5 ml BID PRN Administration COUGH Heparin Sodium (Porcine) 5,000 unit 09/20/18 18:00 09/24/18 09:42 Heparin - SQ 5,000 unit Q8H-IV JENN[facility]ER Administration Piperacillin Sod/Tazobactam 100 mls @ 200 mls/hr 09/20/18 18:00 09/24/18 09: 42 Sod 4.5 gm/ Dextrose IVPB 200 mls/hr Q8H-IV JENN[facility]ER Administration Protocol Vancomycin HCl 1,250 mg/ 250 mls @ 166.667 mls/hr 09/22/18 17:00 09/23/18 17: 43 Dextrose IVPB 166.667 mls/hr Q24H JENN[facility]ER Administration Protocol Insulin Aspart 1 vial 09/20/18 16:30 09/24/18 12:00 Novolog Vial Sliding Scale - SQ 4 units ACHS JENNIFER Administration Protocol Insulin Detemir 12 units 09/24/18 08:10 Levemir Vial SQ AM JENN[facility]ER Prednisone 10 mg 09/23/18 18:45 09/24/18 09:42 Deltasone - PO 10 mg DAILY JENN[facility]ER Administration Terazosin HCl 10 mg 09/20/18 22:00 09/23/18 23:14 Hytrin - PO 10 mg HS JENNIFER Administration ASSESSMENT/PLAN: 73 yo M h/o COPD, IDDM, ILD/Pulmonary fibrosis, rheumatoid arthritis, CHF, and emphysema admitted to the floor for severe sepsis. #Severe sepsis 2/2 PNA - 2/2 PNA, likely aspiration, cannot r/o HCAP, PCP or viral origin -Blood/Urine cultures---> Negative -Vanc and zosyn. Vanc trough Pending. -atovaquone 750mg bid for PCP prophylaxis. B 1,3 D Glucan 88. Pt on Mepron. -Lactate/ WBC WNL -Urine Legionella/Strep Pneu antigens Negative Chest CT---> Bibasilar honey combing /RUL irregular density b/l extensive chronic infiltrative changes. RUL Nodule appreciated. Follow up CT in 2 weeks advised. #Elevated Cr. Today 20/1.3. Spoke with PCP. Creatinine 1.41 on August 28, 2018. - renal U/S--> Morphologically normal kidneys. No evidence of [place]. - urine lytes #COPD -cont. duoneb Prednisone 10 mg daily Spoke with son this evening, pt to be on Prednisone 10 mg daily until October 26 when he meets with ILD doctor, Dr Pastrana. #CHF - cont. daily lasix po 80mg - ECHO--->EF 60%. No pericardial effusion. Mild L Ventricular Hypertrophy, Moderate tricuspid regurg. #IDDM - BGM and sliding scale -Levemir 12 U SQ AM #FEN - No Fluids - Monitor Electrolytes - diabetic diet DVT ppx w/ heparin sq Dispo: Med-Sug Visit type - Emergency Visit Emergency Visit: Yes ED Registration Date: 09/20/18 Care time: The patient presented to the Emergency Department on the above date and was hospitalized for further evaluation of their emergent condition. - New Patient This patient is new to me today: No - Critical Care Critical Care patient: No - Discharge Referral Referred to [facility] Med P.C.: No
--- NOTE | 2018-09-24 13:20 | PN ---
Progress Note, Physician History of Present Illness: pulmonary alert,feeling better,no distress,ambulating,sob improving - Current Medication List Current Medications: Active Medications Acetaminophen (Tylenol -) 650 mg PO Q6H PRN PRN Reason: FEVER Last Admin: 09/23/18 18:55 Dose: 650 mg Albuterol/Ipratropium (Duoneb -) 1 amp NEB RTID [facility] Last Admin: 09/24/18 09:00 Dose: 1 amp Atorvastatin Calcium (Lipitor -) 10 mg PO HS [facility] Last Admin: 09/23/18 23:14 Dose: 10 mg Atovaquone (Mepron -) 750 mg PO BIDWM [facility] Last Admin: 09/24/18 08:50 Dose: 750 mg Budesonide/Formoterol Fumarate (Symbicort 160/4.5mcg -) 2 puff IH BID [facility] Last Admin: 09/24/18 09:43 Dose: 2 puff Folic Acid (Folic Acid -) 1 mg PO DAILY [facility] Last Admin: 09/24/18 09:42 Dose: 1 mg Furosemide (Lasix -) 80 mg PO DAILY [facility] Last Admin: 09/24/18 09:42 Dose: 80 mg Guaifenesin/Codeine Phosphate (Robitussin Ac -) 5 ml PO BID PRN PRN Reason: COUGH Last Admin: 09/23/18 09:37 Dose: 5 ml Heparin Sodium (Porcine) (Heparin -) 5,000 unit SQ Q8H-IV [facility] Last Admin: 09/24/18 09:42 Dose: 5,000 unit Piperacillin Sod/Tazobactam (Sod 4.5 gm/ Dextrose) 100 mls @ 200 mls/hr IVPB Q8H-IV [facility]; Protocol Last Admin: 09/24/18 09:42 Dose: 200 mls/hr Vancomycin HCl 1,250 mg/ (Dextrose) 250 mls @ 166.667 mls/hr IVPB Q24H [facility]; Protocol Last Admin: 09/23/18 17:43 Dose: 166.667 mls/hr Insulin Aspart (Novolog Vial Sliding Scale -) 1 vial SQ ACHS [facility]; Protocol Last Admin: 09/24/18 12:00 Dose: 4 units Insulin Detemir (Levemir Vial) 12 units SQ AM [facility] Prednisone (Deltasone -) 10 mg PO DAILY [facility] Last Admin: 09/24/18 09:42 Dose: 10 mg Terazosin HCl (Hytrin -) 10 mg PO HS [facility] Last Admin: 09/23/18 23:14 Dose: 10 mg - Objective Vital Signs: Vital Signs Temperature 98.4 F 09/24/18 09:00 Pulse Rate 83 09/24/18 09:00 Respiratory Rate 18 09/24/18 09:00 Blood Pressure 127/57 L 09/24/18 09:00 O2 Sat by Pulse Oximetry (%) 93 L 09/23/18 21:00 Constitutional: Yes: Well Nourished, Calm Eyes: Yes: WNL HENT: Yes: WNL Neck: Yes: WNL Cardiovascular: Yes: Regular Rate and Rhythm, S1, S2 Respiratory: Yes: Rales (malika crackles), Rhonchi (few rhonchi) Gastrointestinal: Yes: Normal Bowel Sounds, Soft Extremities: Yes: WNL Edema: No Labs: CBC, BMP 09/24/18 06:30 09/24/18 06:30 INR, PTT INR 1.23 (0.83-1.09) H 09/20/18 14:31 Assessment/Plan Problem List - Problems (1) Rheumatoid arthritis Code(s): M06.9 - RHEUMATOID ARTHRITIS, UNSPECIFIED (2) Fever Code(s): R50.9 - FEVER, UNSPECIFIED (3) PNA (pneumonia) Code(s): J18.9 - PNEUMONIA, UNSPECIFIED ORGANISM (4) Weakness Code(s): R53.1 - WEAKNESS (5) COPD (chronic obstructive pulmonary disease) Code(s): J44.9 - CHRONIC OBSTRUCTIVE PULMONARY DISEASE, UNSPECIFIED (6) ILD (interstitial lung disease) Code(s): J84.9 - INTERSTITIAL PULMONARY DISEASE, UNSPECIFIED Assessment/Plan IMP PNEUMONIA ILD RA H/P PCP PNEUMONIA PULMONARY HTN SUPPLEMENTAL O2 BRONCHODILATORS ABX PER ID MONITOR LYTES F/U CHEST X-RAYS AMBULATORY O2 SAT PRIOR TO DISCHARGE DR WEEKS
[2018-09-24] MEDS: guaiFENesin/CODEINE 5 ML UNIT-DOSE CUPS PO PRN (14:47)
--- NOTE | 2018-09-24 18:51 | PN ---
Progress Note (short form) - Note Progress Note: much more alert clinically improved Vital Signs Period Temp Pulse Resp BP Sys/Wagoner Pulse Ox Last 24 Hr 98 F-98.9 F 74-88 18-21 99-127/57-70 92-93 cor-rrr lungs decreased bs at bases abd soft,nt ext no edema CBC, BMP 09/24/18 06:30 Microbiology 09/20/18 11:50 Blood - Peripheral Venous Blood Culture - Preliminary NO GROWTH OBTAINED AFTER 96 HOURS, INCUBATION TO CONTINUE FOR 1 DAYS. 09/20/18 11:50 Blood - Peripheral Venous Blood Culture - Preliminary NO GROWTH OBTAINED AFTER 96 HOURS, INCUBATION TO CONTINUE FOR 1 DAYS. 09/22/18 17:30 Nares - Mrsa Screen - Right MRSA Screen - Final NO MRSA ISOLATED 09/22/18 17:30 Nares - Mrsa Screen - Left MRSA Screen - Final NO MRSA ISOLATED 09/22/18 18:15 Urine - Urine Clean Catch Legionella Antigen - Final 09/22/18 18:15 Urine - Urine Clean Catch Streptococcus pneumoniae Antigen ( M - Final 09/20/18 17:08 Urine - Urine Clean Catch Urine Culture - Final NO GROWTH OBTAINED 09/20/18 17:08 Urine For Antigen Detection Legionella Antigen - Final 09/20/18 17:08 Urine For Antigen Detection Streptococcus pneumoniae Antigen (M - Final ct scan copd with ILD, bilateral opacities c/w neumonia, ?nodular infiltrate versus rul mass Current Medications Acetaminophen (Tylenol -) 650 mg PO Q6H PRN PRN Reason: FEVER Last Admin: 09/23/18 11:59 Dose: 650 mg Albuterol/Ipratropium (Duoneb -) 1 amp NEB RTID [facility] Last Admin: 09/23/18 13:37 Dose: 1 amp Atorvastatin Calcium (Lipitor -) 10 mg PO HS [facility] Last Admin: 09/22/18 22:00 Dose: 10 mg Atovaquone (Mepron -) 750 mg PO BIDWM [facility] Last Admin: 09/23/18 08:00 Dose: 750 mg Folic Acid (Folic Acid -) 1 mg PO DAILY [facility] Last Admin: 09/23/18 09:34 Dose: 1 mg Furosemide (Lasix -) 80 mg PO DAILY [facility] Last Admin: 09/23/18 09:34 Dose: 80 mg Guaifenesin/Codeine Phosphate (Robitussin Ac -) 5 ml PO BID PRN PRN Reason: COUGH Last Admin: 09/23/18 09:37 Dose: 5 ml Heparin Sodium (Porcine) (Heparin -) 5,000 unit SQ Q8H-IV JENNIFER Last Admin: 09/23/18 09:34 Dose: 5,000 unit Piperacillin Sod/Tazobactam (Sod 4.5 gm/ Dextrose) 100 mls @ 200 mls/hr IVPB Q8H-IV JENNIFER; Protocol Last Admin: 09/23/18 09:35 Dose: 200 mls/hr Vancomycin HCl 1,250 mg/ (Dextrose) 250 mls @ 166.667 mls/hr IVPB Q24H JENN[facility]ER; Protocol Last Admin: 09/22/18 18:15 Dose: 166.667 mls/hr Insulin Aspart (Novolog Vial Sliding Scale -) 1 vial SQ ACHS JENN[facility]ER; Protocol Last Admin: 09/23/18 12:13 Dose: 6 units Terazosin HCl (Hytrin -) 10 mg PO HS JENNIFER Last Admin: 09/22/18 22:00 Dose: 10 mg a/p r/o aspiration pneumonia HCAP doubt PCP given acuity of process continue zosyn, d/c vancomycin with negative mrsa screen continue mepron fungitell- borderline high, high ldh get medical records MRSA screen nares-negative resp virus pcr panel ordered repeat cbc in am elevated creatinine-unchanged DNR/DNI
[2018-09-24] MEDS: VANCOMYCIN 1,250 MG in DEXTROSE 5%-WATER - 250 ML IVPB SCH (19:16)
[2018-09-24] MEDS: TERAZOSIN HCL 5 MG CAPSULE PO SCH (21:19)
[2018-09-24] MEDS: ATORVASTATIN CA 10 MG TABLET (FP) PO SCH (21:19)
[2018-09-25] MEDS ORDERED: DEXTROSE 5%-WATER 100 ML IVPB ONE ×3 (01:05→17:49)
[2018-09-25] MEDS ORDERED: PIPERACILLIN/TAZOBACTAM 4.5 GM VIAL IVPB ONE ×3 (01:05→17:49)
[2018-09-25] MEDS: HEPARIN NA (PORCINE) 5,000 UNITS/ML 1ML VIAL SQ SCH ×3 (01:09→18:08)
[2018-09-25] MEDS: PIPERACILLIN/TAZOB 4.5 GM 4.5 GM in DEXTROSE 5%-WATER 100 ML IVPB SCH ×3 (01:10→18:07)
[2018-09-25] MEDS: guaiFENesin/CODEINE 5 ML UNIT-DOSE CUPS PO PRN ×3 (01:10→22:21)
[2018-09-25] MEDS ORDERED: INSULIN (LEVEMIR) 100 UNITS/ML UNITS SQ ONE (05:32)
[2018-09-25] MEDS ORDERED: INSULIN (NOVOLOG) ASPART 100 UNITS/ML 10ML VIAL ONE ×2 (05:32→18:12)
[2018-09-25] MEDS: INSULIN SLIDING SCALE (NOVOLOG) 1 VIAL SQ SCH ×4 (06:42→22:24)
[2018-09-25 07:24] LABS: HEMATOCRIT 32.2 % (35.4-49); MCH 28.7 pg (25.7-33.7); MCHC 34.1 g/dl (32.0-35.9); MEAN CELL VOLUME 84.1 fl (80-96); MEAN PLT VOLUME 7.9 fl (7.5-11.1); PLATELET COUNT 128 K/MM3 (134-434); RBC 3.83 M/mm3 (4.00-5.60); RDW 15.6 % (11.9-15.9); WHITE BLOOD COUNT 4.8 K/mm3 (4.0-10.0)
[2018-09-25 08:01] LABS: ANION GAP 10 MMOL/L (8-16); BLOOD UREA NITROGEN 22 mg/dL (7-18); CALCIUM 8.1 mg/dL (8.5-10.1); CHLORIDE 95 mmol/L (98-107); CO2 29 mmol/L (21-32); CREATININE 1.4 mg/dL (0.55-1.3); GLUCOSE,RANDOM 162 mg/dL (74-106); MAGNESIUM 1.8 mg/dL (1.8-2.4); PHOSPHOROUS 3.6 mg/dL (2.5-4.9); SODIUM 134 mmol/L (136-145)
[2018-09-25] MEDS: ALBUTEROL SO4 2.5/IPRATROPIUM 0.5 INH SOL 3 ML VIAL.NEB. NEB SCH ×2 (08:01→13:51)
[2018-09-25] MEDS ORDERED: POTASSIUM CHLORIDE 20 MEQ PREMIX IVPB 100 ML IVPB ONE (09:02)
[2018-09-25] MEDS ORDERED: POTASSIUM CHLORIDE TABS 20 MEQ TABLET.ER (FP) PO ONE (09:03)
[2018-09-25] MEDS: FUROSEMIDE 40 MG TABLET (FP) PO SCH (10:25)
[2018-09-25] MEDS: FOLIC ACID 1 MG TABLET (FP) PO SCH (10:26)
[2018-09-25] MEDS: ATOVAQUONE 750 MG/5 ML (UNIT-DOSE PACKAGING) PO SCH ×2 (10:26→18:08)
[2018-09-25] MEDS: predniSONE 10 MG TABLET (UD) PO SCH (10:26)
[2018-09-25] MEDS: KCL 10 MEQ IVPB 10 MEQ/100 ML INFUS.BAG IVPB SCH ×2 (10:27→12:41)
[2018-09-25] MEDS: BUDESONIDE/FORMETEROL FUMARATE 160/4.5 mcg INHALER IH SCH ×2 (10:28→22:25)
[2018-09-25 11:58] LABS: POTASSIUM 2.9 mmol/L (3.5-5.1)
--- NOTE | 2018-09-25 14:14 | PN ---
Progress Note (short form) - Note Progress Note: PULMONARY AWAKE/ALERT/[facility] [place] REMAINS WITH CONGESTED COUGH VSS Constitutional: Yes: Well Nourished, Calm Eyes: Yes: WNL HENT: Yes: WNL Neck: Yes: WNL Cardiovascular: Yes: Regular Rate and Rhythm, S1, S2 Respiratory: Yes: Rales (malika crackles), Rhonchi (few rhonchi) Gastrointestinal: Yes: Normal Bowel Sounds, Soft Extremities: Yes: WNL Edema: No Labs/meds/notes/images reviewed IMP PNEUMONIA ILD RA H/O PCP PNEUMONIA PULMONARY HTN SUPPLEMENTAL O2 BRONCHODILATORS ABX PER ID MONITOR LYTES F/U CHEST X-RAYS AMBULATORY O2 SAT PRIOR TO DISCHARGE Matt PLASENCIA MD Problem List - Problems (1) Rheumatoid arthritis Code(s): M06.9 - RHEUMATOID ARTHRITIS, UNSPECIFIED (2) Fever Code(s): R50.9 - FEVER, UNSPECIFIED (3) PNA (pneumonia) Code(s): J18.9 - PNEUMONIA, UNSPECIFIED ORGANISM (4) Weakness Code(s): R53.1 - WEAKNESS (5) COPD (chronic obstructive pulmonary disease) Code(s): J44.9 - CHRONIC OBSTRUCTIVE PULMONARY DISEASE, UNSPECIFIED (6) ILD (interstitial lung disease) Code(s): J84.9 - INTERSTITIAL PULMONARY DISEASE, UNSPECIFIED
--- NOTE | 2018-09-25 14:36 | PN ---
Progress Note (short form) - Note Progress Note: feels better no complaints today Vital Signs Period Temp Pulse Resp BP Sys/Wagoner Pulse Ox Last 24 Hr 98.2 F-99.0 F 79-93 - 104-124/53-88 93 cor-rrr lungs decreased bs at bases abd soft,nt ext no edema CBC, BMP 09/25/18 06:00 Microbiology 09/20/18 11:50 Blood - Peripheral Venous Blood Culture - Final NO GROWTH AFTER 5 DAYS INCUBATION 09/20/18 11:50 Blood - Peripheral Venous Blood Culture - Final NO GROWTH AFTER 5 DAYS INCUBATION 09/22/18 17:30 Nares - Mrsa Screen - Right MRSA Screen - Final NO MRSA ISOLATED 09/22/18 17:30 Nares - Mrsa Screen - Left MRSA Screen - Final NO MRSA ISOLATED 09/22/18 18:15 Urine - Urine Clean Catch Legionella Antigen - Final 09/22/18 18:15 Urine - Urine Clean Catch Streptococcus pneumoniae Antigen ( M - Final 09/20/18 17:08 Urine - Urine Clean Catch Urine Culture - Final NO GROWTH OBTAINED 09/20/18 17:08 Urine For Antigen Detection Legionella Antigen - Final 09/20/18 17:08 Urine For Antigen Detection Streptococcus pneumoniae Antigen (M - Final ct scan copd with ILD, bilateral opacities c/w pneumonia, ?nodular infiltrate versus rul mass Current Medications Acetaminophen (Tylenol -) 650 mg PO Q6H PRN PRN Reason: FEVER Last Admin: 09/23/18 18:55 Dose: 650 mg Albuterol/Ipratropium (Duoneb -) 1 amp NEB RTID [facility] Last Admin: 09/25/18 13:51 Dose: 1 amp Atorvastatin Calcium (Lipitor -) 10 mg PO HS [facility] Last Admin: 09/24/18 21:19 Dose: 10 mg Atovaquone (Mepron -) 750 mg PO BIDWM [facility] Last Admin: 09/25/18 10:26 Dose: 750 mg Budesonide/Formoterol Fumarate (Symbicort 160/4.5mcg -) 2 puff IH BID [facility] Last Admin: 09/25/18 10:28 Dose: 2 puff Folic Acid (Folic Acid -) 1 mg PO DAILY [facility] Last Admin: 09/25/18 10:26 Dose: 1 mg Furosemide (Lasix -) 80 mg PO DAILY [facility] Last Admin: 09/25/18 10:25 Dose: 80 mg Guaifenesin/Codeine Phosphate (Robitussin Ac -) 5 ml PO BID PRN PRN Reason: COUGH Last Admin: 09/25/18 10:25 Dose: 5 ml Heparin Sodium (Porcine) (Heparin -) 5,000 unit SQ Q8H-IV [facility] Last Admin: 09/25/18 10:26 Dose: 5,000 unit Piperacillin Sod/Tazobactam (Sod 4.5 gm/ Dextrose) 100 mls @ 200 mls/hr IVPB Q8H-IV [facility]; Protocol Last Admin: 09/25/18 10:27 Dose: 200 mls/hr Insulin Aspart (Novolog Vial Sliding Scale -) 1 vial SQ ACHS [facility]ENNIFER; Protocol Last Admin: 09/25/18 12:41 Dose: 4 units Insulin Detemir (Levemir Vial) 15 units SQ AM [facility]ENN[facility]ER Prednisone (Deltasone -) 10 mg PO DAILY [facility] Last Admin: 09/25/18 10:26 Dose: 10 mg Terazosin HCl (Hytrin -) 10 mg PO HS [facility] Last Admin: 09/24/18 21:19 Dose: 10 mg a/p r/o aspiration pneumonia HCAP doubt PCP given acuity of process continue zosyn, finish 7 days continue mepron complete 3 weeks fungitell- borderline high, high ldh records noted DNR/DNI
[2018-09-25] MEDS ORDERED: PT OWN MED DRAWER 7, Y5N ONE ×2 (17:49→21:52)
--- NOTE | 2018-09-25 18:46 | PN ---
Teaching Attending Note Name of Resident: Collin Ventura ATTENDING PHYSICIAN STATEMENT I saw and evaluated the patient. I reviewed the resident's note and discussed the case with the resident. I agree with the resident's findings and plan as documented. SUBJECTIVE: No fever or chills . feels better . No SOB OBJECTIVE: NAD , pleasant , Awake, alert CV: RRR Lungs: bibasilar crackles,. EXT: no edema ASSESSMENT AND PLAN: 73 y/o man with h/o ILD, PCP PNA, COPD, who presented with SOb and was found ot have PNA 1- PNA . improved cont zosyn for 2 more days . Off vanco cont Mepron for total of 3 weeks ( day 5 today ) Needs repeat CT of chest in 2 weeks to evaluate RUL mass 2- H/o ILD. - cont prednisone per out pt taper, 10 mg daily till 10/26 - cont O2 through [place] - Nebs and inhalers - symbicort 3- DM : - cont SSi and increase levemir to home dose . 4- ? CKD . renal US with no hydro . per PCP , Cr base line is around 1.4 5- H/o D CHF: cont home dose lasix 80 daily 6- DVT P X: heparin at dc he declined rehab. he wants to go home. Probably Friday.
--- NOTE | 2018-09-25 20:14 | PN ---
Physical Exam: SUBJECTIVE: Patient seen and examined at bedside. No acute events overnight. OBJECTIVE: Vital Signs Period Temp Pulse Resp BP Sys/Wagoner Pulse Ox Last 24 Hr 97.6 F-100.3 F 79-88 18-22 104-124/53-72 93 GENERAL: Awake Alert Oriented. NAD HEAD: Atraumatic/Normocephalic EYES: EOMI Sclera Clear ENT: MMM NECK: Trachea midline, full range of motion, supple. LUNGS: Crackles R lung field HEART: Regular rate and rhythm. S1S2 ABDOMEN: NDNT EXTREMITIES: No CCE. Distal pulses 2 +. NEUROLOGICAL: No neuro deficits appreciated PSYCH: Normal mood, normal affect. SKIN: No rashes or skin lesions appreciated Laboratory Results - last 24 hr 09/24/18 09/25/18 09/25/18:17 06:00 06:00 WBC 4.8 RBC 3.83 L Hgb 11.0 L Hct 32.2 L MCV 84.1 MCH 28.7 MCHC 34.1 RDW 15.6 Plt Count 128 L MPV 7.9 Sodium 134 L Potassium 2.9 L* Chloride 95 L Carbon Dioxide 29 Anion Gap 10 BUN 22 H Creatinine 1.4 H Creat Clearance w eGFR 49.96 POC Glucometer 264 Random Glucose 162 H Calcium 8.1 L Phosphorus 3.6 Magnesium 1.8 09/25/18 09/25/18 09/25/18 12:29 14:00 18:14 WBC RBC Hgb Hct MCV MCH MCHC RDW Plt Count MPV Sodium Potassium 3.9 Chloride Carbon Dioxide Anion Gap BUN Creatinine Creat Clearance w eGFR POC Glucometer 250 292 Random Glucose Calcium Phosphorus Magnesium Active Medications Generic Name Dose Route Start Last Admin Trade Name Freq PRN Reason Stop Dose Admin Acetaminophen 650 mg 09/21/18 18:58 09/23/18 18:55 Tylenol - PO 650 mg Q6H PRN Administration FEVER Atorvastatin Calcium 10 mg 09/20/18 22:00 09/24/18 21:19 Lipitor - PO 10 mg HS JENNIFER Administration Atovaquone 750 mg 09/20/18 17:30 09/25/18 18:08 Mepron - PO 750 mg BIDWM JENNIFER Administration Budesonide/Formoterol Fumarate 2 puff 09/23/18 22:00 09/25/18 10:28 Symbicort 160/4.5mcg - IH 2 puff BID JENNIFER Administration Folic Acid 1 mg 09/21/18 10:00 09/25/18 10:26 Folic Acid - PO 1 mg DAILY [facility]ENN[facility]ER Administration Furosemide 80 mg 09/21/18 10:00 09/25/18 10:25 Lasix - PO 80 mg DAILY [facility]ENN[facility]ER Administration Guaifenesin/Codeine Phosphate 5 ml 09/23/18 07:00 09/25/18 10:25 Robitussin Ac - PO 5 ml BID PRN Administration COUGH Heparin Sodium (Porcine) 5,000 unit 09/20/18 18:00 09/25/18 18:08 Heparin - SQ 5,000 unit Q8H-IV JENNIFER Administration Piperacillin Sod/Tazobactam 100 mls @ 200 mls/hr 09/20/18 18:00 09/25/18 18: 07 Sod 4.5 gm/ Dextrose IVPB 200 mls/hr Q8H-IV JENNIFER Administration Protocol Insulin Aspart 1 vial 09/20/18 16:30 09/25/18 18:19 Novolog Vial Sliding Scale - SQ 6 units ACHS JENNIFER Administration Protocol Insulin Detemir 15 units 09/25/18 11:24 Levemir Vial SQ AM [facility] Prednisone 10 mg 09/23/18 18:45 09/25/18 10:26 Deltasone - PO 10 mg DAILY [facility]ENN[facility]ER Administration Terazosin HCl 10 mg 09/20/18 22:00 09/24/18 21:19 Hytrin - PO 10 mg HS JENNIFER Administration ASSESSMENT/PLAN: 73 yo M h/o COPD, IDDM, ILD/Pulmonary fibrosis, rheumatoid arthritis, CHF, and emphysema admitted to the floor for severe sepsis. #Severe sepsis 2/2 PNA - 2/2 PNA, likely aspiration, cannot r/o HCAP, PCP or viral origin -Blood/Urine cultures---> Negative zosyn until day 7. -atovaquone 750mg bid for PCP prophylaxis. On day 5, continue for 3 weeks. B 1, 3 D Glucan 88. Pt on Mepron. -Lactate/ WBC WNL -Urine Legionella/Strep Pneu antigens Negative Chest CT---> Bibasilar honey combing /RUL irregular density b/l extensive chronic infiltrative changes. RUL Nodule appreciated. Follow up CT in 2 weeks advised. #Elevated Cr. Today /1.4. Spoke with PCP. Creatinine 1.41 on August 28, 2018. - renal U/S--> Morphologically normal kidneys. No evidence of [place]. - urine lytes #COPD -cont. duoneb Prednisone 10 mg daily Spoke with son, pt to be on Prednisone 10 mg daily until October 26 when he meets with ILD doctor, Dr Pastrana. #CHF - cont. daily lasix po 80mg - ECHO--->EF 60%. No pericardial effusion. Mild L Ventricular Hypertrophy, Moderate tricuspid regurg. #IDDM - BGM and sliding scale -Levemir 12 U SQ AM #FEN - No Fluids - Monitor Electrolytes. Hypokalemia today 2.9. Potassium replete PRN - diabetic diet DVT ppx w/ heparin sq Dispo: Med-Sug Visit type - Emergency Visit Emergency Visit: Yes ED Registration Date: 09/20/18 Care time: The patient presented to the Emergency Department on the above date and was hospitalized for further evaluation of their emergent condition. - New Patient This patient is new to me today: No - Critical Care Critical Care patient: No - Discharge Referral Referred to [facility] Med P.C.: No
[2018-09-25] MEDS: ATORVASTATIN CA 10 MG TABLET (FP) PO SCH (22:21)
[2018-09-25] MEDS: TERAZOSIN HCL 5 MG CAPSULE PO SCH (22:21)
[2018-09-26] MEDS ORDERED: DEXTROSE 5%-WATER 100 ML IVPB ONE ×3 (00:25→16:50)
[2018-09-26] MEDS ORDERED: PIPERACILLIN/TAZOBACTAM 4.5 GM VIAL IVPB ONE ×3 (00:25→16:49)
[2018-09-26] MEDS: PIPERACILLIN/TAZOB 4.5 GM 4.5 GM in DEXTROSE 5%-WATER 100 ML IVPB SCH ×3 (02:00→17:32)
[2018-09-26] MEDS: HEPARIN NA (PORCINE) 5,000 UNITS/ML 1ML VIAL SQ SCH ×3 (02:01→17:32)
[2018-09-26] MEDS: INSULIN (LEVEMIR) 100 UNITS/ML UNITS SQ SCH (06:24)
[2018-09-26] MEDS: INSULIN SLIDING SCALE (NOVOLOG) 1 VIAL SQ SCH ×4 (06:28→21:43)
[2018-09-26] MEDS ORDERED: PT OWN MED DRAWER 7, Y5N ONE ×3 (07:03→16:49)
[2018-09-26] MEDS ORDERED: INSULIN (NOVOLOG) ASPART 100 UNITS/ML 10ML VIAL ONE ×2 (07:03→10:52)
[2018-09-26] MEDS ORDERED: INSULIN (LEVEMIR) 100 UNITS/ML UNITS SQ ONE (07:03)
[2018-09-26 08:22] LABS: HEMATOCRIT 31.4 % (35.4-49); HEMOGLOBIN 10.8 GM/dL (11.7-16.9); MCH 28.8 pg (25.7-33.7); MCHC 34.4 g/dl (32.0-35.9); MEAN CELL VOLUME 83.7 fl (80-96); MEAN PLT VOLUME 7.9 fl (7.5-11.1); PLATELET COUNT 148 K/MM3 (134-434); RBC 3.75 M/mm3 (4.00-5.60); RDW 15.7 % (11.9-15.9); WHITE BLOOD COUNT 4.5 K/mm3 (4.0-10.0)
[2018-09-26 08:51] LABS: ANION GAP 8 MMOL/L (8-16); BLOOD UREA NITROGEN 24 mg/dL (7-18); CALCIUM 7.9 mg/dL (8.5-10.1); CHLORIDE 97 mmol/L (98-107); CO2 31 mmol/L (21-32); CREATININE 1.4 mg/dL (0.55-1.3); GLUCOSE,RANDOM 133 mg/dL (74-106); MAGNESIUM 1.8 mg/dL (1.8-2.4); PHOSPHOROUS 2.9 mg/dL (2.5-4.9); POTASSIUM 3.1 mmol/L (3.5-5.1); SODIUM 136 mmol/L (136-145)
[2018-09-26] MEDS: ATOVAQUONE 750 MG/5 ML (UNIT-DOSE PACKAGING) PO SCH ×2 (09:39→17:31)
[2018-09-26] MEDS: FOLIC ACID 1 MG TABLET (FP) PO SCH (09:40)
[2018-09-26] MEDS: predniSONE 10 MG TABLET (UD) PO SCH (09:40)
[2018-09-26] MEDS: FUROSEMIDE 40 MG TABLET (FP) PO SCH (09:40)
[2018-09-26] MEDS: BUDESONIDE/FORMETEROL FUMARATE 160/4.5 mcg INHALER IH SCH ×2 (09:45→21:44)
[2018-09-26] MEDS ORDERED: POTASSIUM CHLORIDE TABS 20 MEQ TABLET.ER (FP) PO ONE ×2 (09:50→10:48)
[2018-09-26] MEDS ORDERED: guaiFENesin/CODEINE 5 ML UNIT-DOSE CUPS PO PRN (10:50)
[2018-09-26] MEDS: DOCUSATE SODIUM 100 MG CAPSULE (FP) PO SCH (11:58)
[2018-09-26] MEDS: POTASSIUM CHLORIDE TABS 20 MEQ TABLET.ER (FP) PO SCH (12:00)
--- NOTE | 2018-09-26 13:42 | PN ---
Teaching Attending Note Name of Resident: Collin Ventura ATTENDING PHYSICIAN STATEMENT I saw and evaluated the patient. I reviewed the resident's note and discussed the case with the resident. I agree with the resident's findings and plan as documented. SUBJECTIVE: no SOB , no fever . OBJECTIVE: NAD , pleasant CV: RRR Lungs: bibasilar crackles improved ,. EXT: no edema ASSESSMENT AND PLAN: 73 y/o man with h/o ILD, PCP PNA, COPD, who presented with SOb and was found ot have PNA 1- PNA. improved cont zosyn for 1 more days. Off vanco cont Mepron for total of 3 weeks ( day 6 today ) Needs repeat CT of chest in 2 weeks to evaluate RUL mass 2- H/o ILD. - cont prednisone per out pt taper, 10 mg daily till 10/26 - cont O2 through [place] - Nebs and inhalers - symbicort 3- DM : - cont SSi and levemir at home dose . can increase levemir if needed 4- ? CKD . renal US with no hydro . Cr base line is around 1.4 5- H/o D CHF: cont home dose lasix 80 daily replete K and add standing dose of 20 meq 6- DVT P X: heparin at dc he declined rehab. he wants to go home. Probably Friday. A
[2018-09-26] MEDS ORDERED: POLYETHYLENE GLYCOL 3350 119 GM BTL PO PRN (13:46)
--- NOTE | 2018-09-26 15:19 | PN ---
Progress Note (short form) - Note Progress Note: PULMONARY AWAKE/ALERT/[place] REMAINS WITH CONGESTED COUGH TMAX 99 Constitutional: Yes: Well Nourished, Calm Eyes: Yes: WNL HENT: Yes: WNL Neck: Yes: WNL Cardiovascular: Yes: Regular Rate and Rhythm, S1, S2 Respiratory: Yes: Rales (malika crackles), Rhonchi (few rhonchi) Gastrointestinal: Yes: Normal Bowel Sounds, Soft Extremities: Yes: WNL Edema: No Labs/meds/notes/images reviewed IMP PNEUMONIA ILD RA H/O PCP PNEUMONIA PULMONARY HTN SUPPLEMENTAL O2 BRONCHODILATORS ABX PER ID MONITOR LYTES F/U CHEST X-RAYS AMBULATORY O2 SAT PRIOR TO DISCHARGE Matt PLASENCIA MD Problem List - Problems (1) Rheumatoid arthritis Code(s): M06.9 - RHEUMATOID ARTHRITIS, UNSPECIFIED (2) Fever Code(s): R50.9 - FEVER, UNSPECIFIED (3) PNA (pneumonia) Code(s): J18.9 - PNEUMONIA, UNSPECIFIED ORGANISM (4) Weakness Code(s): R53.1 - WEAKNESS (5) COPD (chronic obstructive pulmonary disease) Code(s): J44.9 - CHRONIC OBSTRUCTIVE PULMONARY DISEASE, UNSPECIFIED (6) ILD (interstitial lung disease) Code(s): J84.9 - INTERSTITIAL PULMONARY DISEASE, UNSPECIFIED
--- NOTE | 2018-09-26 15:20 | PN ---
Physical Exam: SUBJECTIVE: Patient seen and examined at bedside. No acute events overnight. OBJECTIVE: Vital Signs Period Temp Pulse Resp BP Sys/Wagoner Pulse Ox Last 24 Hr 97.6 F-100.3 F 76-88 18-20 109-124/63-72 93-93 GENERAL: NAD HEAD: Atraumatic/Normocephalic EYES: EOMI Sclera Clear ENT: MMM NECK: Trachea midline, full range of motion, supple. LUNGS: Crackles R lung field. Good inspiratory effort HEART: Regular rate and rhythm. nl S1 S2 ABDOMEN: NDNT EXTREMITIES: No CCE. Distal pulses 2 +. NEUROLOGICAL: No neuro deficits appreciated PSYCH: Normal mood, normal affect. SKIN: No rashes or skin lesions appreciated Laboratory Results - last 24 hr 09/24/18 09/25/18 09/25/18 13:45 18:14 22:23 WBC 4.9 RBC Hgb Hct MCV MCH MCHC RDW Plt Count MPV Absolute Lymphs (auto) 0.5 L Lymphocytes 10 Nucleated RBCs TNP Sodium Potassium Chloride Carbon Dioxide Anion Gap BUN Creatinine Creat Clearance w eGFR POC Glucometer 292 294 Random Glucose Calcium Phosphorus Magnesium Absolute CD3 Count 326 L % CD3+ Lymphocytes 65.1 Absolute CD4 [place] 156 L % CD4+ Lymphocyte 31.1 CD4/CD8 Ratio 0.87 L % CD8+ Lymphocyte 35.8 H Absolute CD8 Count 179 09/26/18 09/26/18 09/26/18 06:23 07:40 07:40 WBC 4.5 RBC 3.75 L Hgb 10.8 L Hct 31.4 L MCV 83.7 MCH 28.8 MCHC 34.4 RDW 15.7 Plt Count 148 MPV 7.9 Absolute Lymphs (auto) Lymphocytes Nucleated RBCs Sodium 136 Potassium 3.1 L Chloride 97 L Carbon Dioxide 31 Anion Gap 8 BUN 24 H Creatinine 1.4 H Creat Clearance w eGFR 49.96 POC Glucometer 148 Random Glucose 133 H Calcium 7.9 L Phosphorus 2.9 Magnesium 1.8 Absolute CD3 Count % CD3+ Lymphocytes Absolute CD4 [place] % CD4+ Lymphocyte CD4/CD8 Ratio % CD8+ Lymphocyte Absolute CD8 Count 09/26/18 11:52 WBC RBC Hgb Hct MCV MCH MCHC RDW Plt Count MPV Absolute Lymphs (auto) Lymphocytes Nucleated RBCs Sodium Potassium Chloride Carbon Dioxide Anion Gap BUN Creatinine Creat Clearance w eGFR POC Glucometer 208 Random Glucose Calcium Phosphorus Magnesium Absolute CD3 Count % CD3+ Lymphocytes Absolute CD4 [place] % CD4+ Lymphocyte CD4/CD8 Ratio % CD8+ Lymphocyte Absolute CD8 Count Active Medications Generic Name Dose Route Start Last Admin Trade Name Freq PRN Reason Stop Dose Admin Acetaminophen 650 mg 09/21/18 18:58 09/23/18 18:55 Tylenol - PO 650 mg Q6H PRN Administration FEVER Atorvastatin Calcium 10 mg 09/20/18 22:00 09/25/18 22:21 Lipitor - PO 10 mg HS JENNIFER Administration Atovaquone 750 mg 09/20/18 17:30 09/26/18 09:39 Mepron - PO 750 mg BIDWM JENNIFER Administration Budesonide/Formoterol Fumarate 2 puff 09/23/18 22:00 09/26/18 09:45 Symbicort 160/4.5mcg - IH 2 puff BID JENNIFER Administration Docusate Sodium 100 mg 09/26/18 11:00 09/26/18 11:58 Colace - PO 100 mg DAILY JENNIFER Administration Folic Acid 1 mg 09/21/18 10:00 09/26/18 09:40 Folic Acid - PO 1 mg DAILY JENNIFER Administration Furosemide 80 mg 09/21/18 10:00 09/26/18 09:40 Lasix - PO 80 mg DAILY JENNIFER Administration Guaifenesin/Codeine Phosphate 5 ml 09/26/18 10:50 Robitussin Ac - PO 10/02/18 10:49 BID PRN COUGH Heparin Sodium (Porcine) 5,000 unit 09/20/18 18:00 09/26/18 09:44 Heparin - SQ 5,000 unit Q8H-IV JENNIFER Administration Piperacillin Sod/Tazobactam 100 mls @ 200 mls/hr 09/20/18 18:00 09/26/18 09: 41 Sod 4.5 gm/ Dextrose IVPB 200 mls/hr Q8H-IV JENNIFER Administration Protocol Insulin Aspart 1 vial 09/20/18 16:30 09/26/18 11:55 Novolog Vial Sliding Scale - SQ 4 units ACHS JENNIFER Administration Protocol Insulin Detemir 15 units 09/25/18 11:24 09/26/18 06:24 Levemir Vial SQ 15 units AM JENNIFER Administration Polyethylene Glycol 17 gm 09/26/18 13:46 Miralax (For Daily Use) - PO DAILY PRN CONSTIPATION Potassium Chloride 20 meq 09/26/18 11:00 09/26/18 12:00 K-Dur - PO 20 meq DAILY JENNIFER Administration Prednisone 10 mg 09/23/18 18:45 09/26/18 09:40 Deltasone - PO 10 mg DAILY JENNIFER Administration Terazosin HCl 10 mg 09/20/18 22:00 09/25/18 22:21 Hytrin - PO 10 mg HS JENNIFER Administration ASSESSMENT/PLAN: 73 yo M h/o COPD, IDDM, ILD/Pulmonary fibrosis, rheumatoid arthritis, CHF, and emphysema admitted to the floor for severe sepsis. #Severe sepsis 2/2 PNA - 2/2 PNA, likely aspiration, cannot r/o HCAP, PCP or viral origin -Blood/Urine cultures---> Negative zosyn until day last day-7. -atovaquone 750mg bid for PCP prophylaxis. On day 5, continue for 3 weeks. B 1, 3 D Glucan 88. Pt on Mepron. -Lactate/ WBC WNL -Urine Legionella/Strep Pneu antigens Negative Chest CT---> Bibasilar honey combing /RUL irregular density b/l extensive chronic infiltrative changes. RUL Nodule appreciated. Follow up CT in 2 weeks advised. Robitussin PRN for Cough #Elevated Cr. Today 25/08.4. Spoke with PCP. Creatinine 1.41 on August 28, 2018. - renal U/S--> Morphologically normal kidneys. No evidence of [place]. - urine lytes #COPD -cont. duoneb Prednisone 10 mg daily Spoke with son, pt to be on Prednisone 10 mg daily until October 26 when he meets with ILD doctor, Dr Pastrana. #CHF - cont. daily lasix po 80mg - ECHO---> EF 60%. No pericardial effusion. Mild L Ventricular Hypertrophy, Moderate tricuspid regurg. #IDDM - BGM and sliding scale -Levemir 15 U SQ AM #FEN - No Fluids - Monitor Electrolytes. Hypokalemia today 3.1. Start Standing 20 mEQ Kdur. - diabetic diet DVT ppx w/ heparin sq Dispo: Med-Sug Visit type - Emergency Visit Emergency Visit: Yes ED Registration Date: 09/20/18 Care time: The patient presented to the Emergency Department on the above date and was hospitalized for further evaluation of their emergent condition. - New Patient This patient is new to me today: No - Critical Care Critical Care patient: No - Discharge Referral Referred to [facility] No
[2018-09-26] MEDS: TERAZOSIN HCL 5 MG CAPSULE PO SCH (21:43)
[2018-09-26] MEDS: ATORVASTATIN CA 10 MG TABLET (FP) PO SCH (21:43)
[2018-09-27] MEDS ORDERED: DEXTROSE 5%-WATER 100 ML IVPB ONE ×3 (01:56→17:26)
[2018-09-27] MEDS ORDERED: PIPERACILLIN/TAZOBACTAM 4.5 GM VIAL IVPB ONE ×3 (01:56→17:26)
[2018-09-27] MEDS: PIPERACILLIN/TAZOB 4.5 GM 4.5 GM in DEXTROSE 5%-WATER 100 ML IVPB SCH ×3 (02:06→17:43)
[2018-09-27] MEDS: HEPARIN NA (PORCINE) 5,000 UNITS/ML 1ML VIAL SQ SCH ×3 (02:06→17:08)
[2018-09-27] MEDS: INSULIN SLIDING SCALE (NOVOLOG) 1 VIAL SQ SCH ×4 (06:08→22:26)
[2018-09-27] MEDS: INSULIN (LEVEMIR) 100 UNITS/ML UNITS SQ SCH (06:13)
[2018-09-27 07:04] LABS: HEMATOCRIT 32.6 % (35.4-49); HEMOGLOBIN 11.3 GM/dL (11.7-16.9); MCH 28.4 pg (25.7-33.7); MCHC 34.6 g/dl (32.0-35.9); MEAN CELL VOLUME 82.1 fl (80-96); MEAN PLT VOLUME 7.8 fl (7.5-11.1); PLATELET COUNT 170 K/MM3 (134-434); RBC 3.98 M/mm3 (4.00-5.60); RDW 15.5 % (11.9-15.9); WHITE BLOOD COUNT 4.8 K/mm3 (4.0-10.0)
[2018-09-27 08:01] LABS: ANION GAP 10 MMOL/L (8-16); BLOOD UREA NITROGEN 28 mg/dL (7-18); CALCIUM 8.4 mg/dL (8.5-10.1); CHLORIDE 96 mmol/L (98-107); CO2 29 mmol/L (21-32); CREATININE 1.5 mg/dL (0.55-1.3); GLUCOSE,RANDOM 149 mg/dL (74-106); MAGNESIUM 1.8 mg/dL (1.8-2.4); PHOSPHOROUS 3.6 mg/dL (2.5-4.9); SODIUM 135 mmol/L (136-145)
[2018-09-27 08:08] LABS: POTASSIUM 2.9 mmol/L (3.5-5.1)
[2018-09-27] MEDS ORDERED: PT OWN MED DRAWER 7, Y5N ONE (08:33)
[2018-09-27] MEDS: ATOVAQUONE 750 MG/5 ML (UNIT-DOSE PACKAGING) PO SCH ×2 (09:10→17:43)
[2018-09-27] MEDS: POTASSIUM CHLORIDE TABS 20 MEQ TABLET.ER (FP) PO SCH (09:12)
[2018-09-27] MEDS: predniSONE 10 MG TABLET (UD) PO SCH (09:12)
[2018-09-27] MEDS: FOLIC ACID 1 MG TABLET (FP) PO SCH (09:12)
[2018-09-27] MEDS: FUROSEMIDE 40 MG TABLET (FP) PO SCH (09:12)
[2018-09-27] MEDS: DOCUSATE SODIUM 100 MG CAPSULE (FP) PO SCH (09:16)
[2018-09-27] MEDS: KCL 10 MEQ IVPB 10 MEQ/100 ML INFUS.BAG IVPB SCH ×3 (09:20→11:27)
[2018-09-27] MEDS: BUDESONIDE/FORMETEROL FUMARATE 160/4.5 mcg INHALER IH SCH ×2 (09:28→22:26)
[2018-09-27] MEDS ORDERED: INSULIN (NOVOLOG) ASPART 100 UNITS/ML 10ML VIAL ONE (11:17)
--- NOTE | 2018-09-27 12:24 | PN ---
Progress Note (short form) - Note Progress Note: PULMONARY RESTING COMFORTABLY AFEBRILE Constitutional: Yes: Well Nourished, Calm Eyes: Yes: WNL HENT: Yes: WNL Neck: Yes: WNL Cardiovascular: Yes: Regular Rate and Rhythm, S1, S2 Respiratory: Yes: Rales (malika crackles), Rhonchi (few rhonchi) Gastrointestinal: Yes: Normal Bowel Sounds, Soft Extremities: Yes: WNL Edema: No Labs/meds/notes/images reviewed IMP PNEUMONIA ILD RA H/O PCP PNEUMONIA PULMONARY HTN HYPOKALEMIA SUPPLEMENTAL O2 BRONCHODILATORS ABX PER ID CORRECT K+ F/U CHEST X-RAYS AMBULATORY O2 SAT PRIOR TO DISCHARGE Matt PLASENCIA MD Problem List - Problems (1) Rheumatoid arthritis Code(s): M06.9 - RHEUMATOID ARTHRITIS, UNSPECIFIED (2) Fever Code(s): R50.9 - FEVER, UNSPECIFIED (3) PNA (pneumonia) Code(s): J18.9 - PNEUMONIA, UNSPECIFIED ORGANISM (4) Weakness Code(s): R53.1 - WEAKNESS (5) COPD (chronic obstructive pulmonary disease) Code(s): J44.9 - CHRONIC OBSTRUCTIVE PULMONARY DISEASE, UNSPECIFIED (6) ILD (interstitial lung disease) Code(s): J84.9 - INTERSTITIAL PULMONARY DISEASE, UNSPECIFIED
[2018-09-27] MEDS ORDERED: INSULIN (LEVEMIR) 100 UNITS/ML UNITS SQ SCH (14:30)
--- NOTE | 2018-09-27 14:33 | PN ---
Progress Note (short form) - Note Progress Note: Subjective: no fever or chills . No SOB . no VILLAFUERTE. no Abd pain Objective: Vital Signs: Last Vital Signs Temp Pulse Resp BP Pulse Ox 97.5 F L 86 18 140/68 94 L 09/27/18 08:55 09/27/18 08:55 09/27/18 09:00 09/27/18 08:55 09/27/18 09:00 Laboratory Results - last 24 hr 09/26/18 09/26/18 09/27/18 16:17 21:39 05:28 WBC RBC Hgb Hct MCV MCH MCHC RDW Plt Count MPV Sodium Potassium Chloride Carbon Dioxide Anion Gap BUN Creatinine Creat Clearance w eGFR POC Glucometer 284 318 147 Random Glucose Calcium Phosphorus Magnesium 09/27/18 09/27/18 09/27/18 06:30 06:30 11:01 WBC 4.8 RBC 3.98 L Hgb 11.3 L Hct 32.6 L MCV 82.1 MCH 28.4 MCHC 34.6 RDW 15.5 Plt Count 170 MPV 7.8 Sodium 135 L Potassium 2.9 L* Chloride 96 L Carbon Dioxide 29 Anion Gap 10 BUN 28 H Creatinine 1.5 H Creat Clearance w eGFR 46.13 POC Glucometer 297 Random Glucose 149 H Calcium 8.4 L Phosphorus 3.6 Magnesium 1.8 Physical Exam: NAD , pleasant CV: RRR Lungs: bibasilar crackles improved. EXT: no edema ASSESSMENT AND PLAN: 73 y/o man with h/o ILD, PCP PNA, COPD, who presented with SOb and was found ot have PNA 1- PNA. improved last day of zosyn cont Mepron for total of 3 weeks ( day 7 today ) Needs repeat CT of chest in 2 weeks to evaluate RUL mass 2- H/o ILD. - cont prednisone per out pt taper, 10 mg daily till 10/26 - cont O2 through [place] - Nebs and inhalers - symbicort - pre-post ambulatory pulse ox 3- DM : - cont SSi and increase levemir to 17 units. 4- ? CKD . renal US with no hydro . Cr base line is around 1.4 5- H/o D CHF: cont home dose lasix 80 daily cont daily Kcl and give IV kcl of 10 jose luis x 3, then repeat K 6- DVT P X: heparin Dc home tomorrow . declines rehab . Visit type - Emergency Visit Emergency Visit: Yes ED Registration Date: 09/20/18 Care time: The patient presented to the Emergency Department on the above date and was hospitalized for further evaluation of their emergent condition. - New Patient This patient is new to me today: No - Critical Care Critical Care patient: No
[2018-09-27] MEDS: ATORVASTATIN CA 10 MG TABLET (FP) PO SCH (22:17)
[2018-09-27] MEDS: TERAZOSIN HCL 5 MG CAPSULE PO SCH (22:17)
[2018-09-28] MEDS ORDERED: PIPERACILLIN/TAZOBACTAM 4.5 GM VIAL IVPB ONE (00:28)
[2018-09-28] MEDS ORDERED: DEXTROSE 5%-WATER 100 ML IVPB ONE (00:29)
[2018-09-28] MEDS: PIPERACILLIN/TAZOB 4.5 GM 4.5 GM in DEXTROSE 5%-WATER 100 ML IVPB SCH (01:05)
[2018-09-28] MEDS: HEPARIN NA (PORCINE) 5,000 UNITS/ML 1ML VIAL SQ SCH ×3 (02:22→13:39)
[2018-09-28] MEDS: INSULIN SLIDING SCALE (NOVOLOG) 1 VIAL SQ SCH ×3 (06:08→17:00)
[2018-09-28 07:31] LABS: ANION GAP 9 MMOL/L (8-16); BLOOD UREA NITROGEN 28 mg/dL (7-18); CALCIUM 8.4 mg/dL (8.5-10.1); CHLORIDE 98 mmol/L (98-107); CO2 29 mmol/L (21-32); CREATININE 1.4 mg/dL (0.55-1.3); GLUCOSE,RANDOM 137 mg/dL (74-106); MAGNESIUM 1.8 mg/dL (1.8-2.4); PHOSPHOROUS 3.5 mg/dL (2.5-4.9); POTASSIUM 3.1 mmol/L (3.5-5.1); SODIUM 136 mmol/L (136-145)
[2018-09-28 07:44] VITALS: TEMP 98.3
[2018-09-28] MEDS ORDERED: POTASSIUM CHLORIDE TABS 20 MEQ TABLET.ER (FP) PO ONE (08:00)
[2018-09-28] MEDS ORDERED: PT OWN MED DRAWER 7, Y5N ONE (08:04)
[2018-09-28] MEDS: ATOVAQUONE 750 MG/5 ML (UNIT-DOSE PACKAGING) PO SCH (09:10)
[2018-09-28] MEDS: predniSONE 10 MG TABLET (UD) PO SCH (09:11)
[2018-09-28] MEDS: DOCUSATE SODIUM 100 MG CAPSULE (FP) PO SCH (09:11)
[2018-09-28] MEDS: POTASSIUM CHLORIDE TABS 20 MEQ TABLET.ER (FP) PO SCH (09:13)
[2018-09-28] MEDS: FUROSEMIDE 40 MG TABLET (FP) PO SCH (09:13)
[2018-09-28] MEDS: FOLIC ACID 1 MG TABLET (FP) PO SCH (09:13)
[2018-09-28] MEDS: BUDESONIDE/FORMETEROL FUMARATE 160/4.5 mcg INHALER IH SCH (09:20)
[2018-09-28 09:30] VITALS: BP 114/62; PULSE 80
--- NOTE | 2018-09-28 11:22 | PN ---
Progress Note (short form) - Note Progress Note: PULMONARY Denies shortness of breath. +cough with yellow/green sputum but clearing. No fevers. Vital Signs Period Temp Pulse Resp BP Sys/Wagoner Pulse Ox Last 24 Hr 97.6 F-99.0 F 68-98 18-20 107-134/59-75 93-96 Gen: NAD at rest Heart: RRR Lung: bibasilar rales Abd: soft, nontender Ext: no edema CBC, BMP 09/27/18 06:30 09/28/18 06:05 Active Medications Acetaminophen (Tylenol -) 650 mg PO Q6H PRN PRN Reason: FEVER Last Admin: 09/23/18 18:55 Dose: 650 mg Atorvastatin Calcium (Lipitor -) 10 mg PO HS [facility] Last Admin: 09/27/18 22:17 Dose: 10 mg Atovaquone (Mepron -) 750 mg PO BIDWM [facility] Last Admin: 09/28/18 09:10 Dose: 750 mg Budesonide/Formoterol Fumarate (Symbicort 160/4.5mcg -) 2 puff IH BID [facility] Last Admin: 09/28/18 09:20 Dose: 2 puff Docusate Sodium (Colace -) 100 mg PO DAILY [facility] Last Admin: 09/28/18 09:11 Dose: Not Given Folic Acid (Folic Acid -) 1 mg PO DAILY [facility] Last Admin: 09/28/18 09:13 Dose: 1 mg Furosemide (Lasix -) 80 mg PO DAILY [facility] Last Admin: 09/28/18 09:13 Dose: 80 mg Guaifenesin/Codeine Phosphate (Robitussin Ac -) 5 ml PO BID PRN PRN Reason: COUGH Stop: 10/02/18 10:49 Last Admin: 09/27/18 09:11 Dose: 5 ml Heparin Sodium (Porcine) (Heparin -) 5,000 unit SQ TID [facility] Last Admin: 09/28/18 05:49 Dose: 5,000 unit Insulin Aspart (Novolog Vial Sliding Scale -) 1 vial SQ ACHS [facility]; Protocol Last Admin: 09/28/18 06:08 Dose: Not Given Insulin Detemir (Levemir Vial) 17 units SQ AM [facility] Last Admin: 09/28/18 06:48 Dose: 17 units Polyethylene Glycol (Miralax (For Daily Use) -) 17 gm PO DAILY PRN PRN Reason: CONSTIPATION Potassium Chloride (K-Dur -) 20 meq PO DAILY [facility] Last Admin: 09/28/18 09:13 Dose: 20 meq Prednisone (Deltasone -) 10 mg PO DAILY [facility] Last Admin: 09/28/18 09:11 Dose: 10 mg Terazosin HCl (Hytrin -) 10 mg PO HS [facility] Last Admin: 09/27/18 22:17 Dose: 10 mg A/P Pneumonia Interstitial Lung Disease COPD LV Diastolic Dysfunction Pulmonary HTN DM CKD - complete antibiotics - continue home dose prednisone - inhaled bronchodilators - O2 to keep SpO2 >905 - DVT prophylaxis - d/c planning
--- NOTE | 2018-09-28 14:13 | PN ---
Teaching Attending Note Name of Resident: Collin Ventura ATTENDING PHYSICIAN STATEMENT I saw and evaluated the patient. I reviewed the resident's note and discussed the case with the resident. I agree with the resident's findings and plan as documented. SUBJECTIVE: No fever or chills. No SOB, no VILLAFUERTE . OBJECTIVE: NAD , pleasant CV: RRR Lungs: bibasilar crackles improved. EXT: no edema ASSESSMENT AND PLAN: 73 y/o man with h/o ILD, PCP PNA, COPD, who presented with SOb and was found ot have PNA 1- PNA. improved s/p 7 says of zosyn cont Mepron for total of 3 weeks ( day 8 today ) Needs repeat CT of chest in 2 weeks to evaluate RUL mass 2- H/o ILD. - cont prednisone per out pt taper, 10 mg daily till 10/26 - cont O2 through [place] - Nebs and inhalers - symbicort - pre-post ambulatory pulse ox did not indicate the need for O2 with ambulation 3- DM : - cont levemir and metformin at dc . 4- ? CKD . renal US with no hydro . Cr base line is around 1.4 5- H/o D CHF: cont home dose lasix 80 daily increase Kcl to 20 BID DC home with VNS today. he still declines rehab. f/u with pulm, renal , card, and PCP
[2018-09-28] MEDS ORDERED: ALBUTEROL SO4 2.5/IPRATROPIUM 0.5 INH SOL 3 ML VIAL.NEB. NEB ONE (14:58)
--- NOTE | 2018-09-28 18:20 | DS ---
Physical Exam: SUBJECTIVE: Patient seen and examined at bedside. No acute events overnight. OBJECTIVE: Vital Signs Period Temp Pulse Resp BP Sys/Wagoner Pulse Ox Last 24 Hr 98.3 F-99.0 F 68-80 18-18 107-114/59-62 95-96 PHYSICAL EXAM GENERAL: AAOx3, Resting comfortably HEAD: Atraumatic/Normocephalic EYES: EOMI Sclera Clear ENT: MMM NECK: supple no jvd LUNGS: Crackles Right upper lung field. HEART: Regular rate and rhythm. nl S1 S2 ABDOMEN: NDNT EXTREMITIES: No CCE. Distal pulses 2 +. NEUROLOGICAL: No neuro deficits appreciated PSYCH: Normal mood, normal affect. SKIN: No rashes or skin lesions appreciated LABS Laboratory Results - last 24 hr 09/27/18 09/28/18 09/28/18 22:23 05:31 06:05 Sodium 136 Potassium 3.1 L Chloride 98 Carbon Dioxide 29 Anion Gap 9 BUN 28 H Creatinine 1.4 H Creat Clearance w eGFR 49.96 POC Glucometer 239 142 Random Glucose 137 H Calcium 8.4 L Phosphorus 3.5 Magnesium 1.8 09/28/18 12:08 Sodium Potassium Chloride Carbon Dioxide Anion Gap BUN Creatinine Creat Clearance w eGFR POC Glucometer 286 Random Glucose Calcium Phosphorus Magnesium HOSPITAL COURSE: Date of Admission:09/20/18 Pt is a 73 yo gentleman with significant past medical history of COPD, IDDM, ILD/Pulmonary fibrosis, rheumatoid arthritis, CHF, and emphysema who was admitted to the floor for severe sepsis. Pt underwent imaging with a CT scan of his chest which revealed bibasilar honey combing /RUL irregular density b/l extensive chronic infiltrative changes. RUL Nodule appreciated (Follow up CT in 2 weeks advised.) Pt was initially started on Vancomycin and Zosyn but vanco was discontinued as MRSA screen was negative. Pt was placed on mepron as well for possible pcp. Pt was also placed on prednisone 10 mg daily as part of a steroid taper started while he was admitted previously at a different institution. Urine legionella/Strep pneumo antigens were negative. Pt was also kept on his home lasix 80 mg daily. Furthermore, pt was observed to be hypokalemic during his stay and was placed on 20 Meq KCL PO BID on discharge. Pt 's levemir was increased to 17 U in the am. Date of Discharge: 09/28/18 Minutes to complete discharge: 35 Discharge Summary Reason For Visit: PNEUMONIA Condition: Improved - Instructions Diet, Activity, Other Instructions: You presented to the hospital due to altered mental status and a bloodstream infection. you were treated with antibiotics and steroids for your underlying COPD and lung disease. Please take the following medication below as prescribed Atavaquone 750 MG TWICE per day for another 13 days Prednisone 10 mg Daily until October 26, when you see your ILD Doctor, Dr Pastrana. Potassium Chloride. Please take this medication 20 mg TWICE per day. We have increased your insulin dose of Levimir to 17 units in the AM. Please continue to take this dose take your metformin daily not twice a day Please continue to take all of your home medications as before Please follow up with your ILD doctor, Dr Pastrana within 1week Please follow up with your PCP Dr Geiger in 1 week. 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 It is very important for you to have a repeat CAT SCAN of your chest within 2 weeks to make sure this nodule isn't cancer Please repeat a blood test called a BMP. This is to check your potassium level and other important electrolyte levels. We will give you a prescription for this. check your sugar three times a day before each meal please continue using 3 L of oxygen at rest and with ambulation Referrals: Justin Thao MD [Primary Care Provider] - Angelique Ashton MD [Staff Physician] - Disposition: VNS/HOME HEALTH CARE - Home Medications Comprehensive Discharge Medication List: Ambulatory Orders Folic Acid 1 mg PO DAILY 09/20/18 Furosemide [Lasix] 80 mg PO DAILY 09/20/18 Lovastatin 20 mg PO HS 09/20/18 Terazosin HCl 10 mg PO HS 09/20/18 Albuterol Sulfate Inhaler - [Ventolin HFA Inhaler -] 1 - 2 inh PO Q4H #1 inhaler 09/28/18 Atovaquone [Mepron Oral Solution -] 750 mg PO BIDWM #1 bottle 09/28/18 Budesonide/Formeterol Fumarate [SYMBICORT 160/4.5mcg -] 2 puff IH BID inhaler 09/28/18 Docusate Sodium [Colace -] 100 mg PO DAILY capsule 09/28/18 Insulin (Levemir) [Levemir Vial] 17 units SQ AM units 09/28/18 Metformin HCl [Metformin HCl ER] 500 mg PO DAILY #30 tab.er.24h 09/28/18 Miscellaneous Medical Supply [Outpatient Order] 1 each ASDIR #1 misc Polyethylene Glycol 3350 [Miralax 119 gm Btl -] 17 gm PO DAILY PRN bottle 09/28 Potassium Chloride 20 meq PO BID #60 tablet.er 09/28/18 predniSONE [Deltasone -] 10 mg PO DAILY tablet 09/28/18 This patient is new to me today: No Emergency Visit: Yes ED Registration Date: 09/20/18 Care time: The patient presented to the Emergency Department on the above date and was hospitalized for further evaluation of their emergent condition. Critical Care patient: No - Discharge Referral Referred to [facility] No
== END 2018-09-28 17:18 | disposition home health service (06) | DRG 871 ==
LOC: EDBD 11:13 → JER 11:13 → JERBED 14:12 → J5S 19:02
PROVIDERS: ADMIT Internal Medicine; ATTEND Internal Medicine
DX: A41.9 Sepsis, unspecified organism (principal); J69.0 Pneumonitis due to inhalation of food and vomit; N39.0 Urinary tract infection, site not specified; J84.9 Interstitial pulmonary disease, unspecified; J44.9 Chronic obstructive pulmonary disease, unspecified; E11.9 Type 2 diabetes mellitus without complications; R41.82 Altered mental status, unspecified; E66.9 Obesity, unspecified; Z68.26 Body mass index [BMI] 26.0-26.9, adult; M06.9 Rheumatoid arthritis, unspecified; D64.9 Anemia, unspecified; R91.1 Solitary pulmonary nodule; R50.9 Fever, unspecified; R53.1 Weakness; I50.9 Heart failure, unspecified; I27.20 Pulmonary hypertension, unspecified; E87.6 Hypokalemia; N18.9 Chronic kidney disease, unspecified; Z87.891 Personal history of nicotine dependence; Z79.4 Long term (current) use of insulin; Z66 Do not resuscitate
CPT/HCPCS: 36415; 71045-TC-FY; 71046-TC-FY; 71250-TC; 76775-TC; 80048; 80053; 81003; 82570; 82803; 82962; 83605; 83615; 83735; 83880; 84100; 84132; 84156; 84300; 84484; 84540; 85025; 85027; 85610; 85730; 86359; 86360; 87040; 87081; 87086; 87389; 87449; 87633; 87804; 87807; 87899; 93005; 93010; 93306-TC; 94640; 94761; 97116-GP; 97161-GP; 99285-25; G0480; J0131; J1644